=== PATIENT | male | born 1950 | race Caucasian/White ===

== ENCOUNTER 2025-07-29 13:34 | Inpatient (IN) | payer MEDICARE, SELFPAY ==
[2025-07-29] VITALS (15 sets, daily range): BP systolic 181–211; BP diastolic 82–116; PULSE 67–103; RESP 16–18; TEMP 36.4–36.7; O2SAT 98–100; BMI 11.5; BMI 27.3
--- NOTE | 2025-07-29 13:45 | XR_ITS ---
Examination: CTA carotids with intravenous contrast CTA brain, head with intravenous contrast. 2-D sagittal, coronal reconstructions. 3-D reconstructions. Exam date and time: July 29, 2025 1404 hours INDICATIONS: Stroke alert, onset focal neurologic deficit including altered mental status today CTDI: vol (mGy) 11.4 DLP: (mGycm) 399 Technique: Multiple CTA axial brain, head carotid images post intravenous contrast injection 75 cc, [id number]. 2-D sagittal, coronal reconstructions. 3-D reconstructions, 3-D post processing including vascular maximum intensity projection images. Low dose protocols were performed. One or more of the following dose reduction techniques were used; automated exposure control, adjustment of the mA and/or KV according to patient size, use of iterative reconstruction technique. Findings: No significant common carotid carotid bifurcation or internal carotid artery stenoses Moderate calcification of the right carotid bifurcation Dominant right vertebral artery in the neck with no critical stenoses Intracranial vertebral arteries basilar artery posterior cerebral branches fill with no occlusions Moderate calcification juxtasellar portions of the internal carotid arteries No large vessel cerebral occlusions involving middle cerebral or anterior cerebral arteries IMPRESSION: No significant neck arterial stenoses No cerebral large vessel arterial occlusions or thrombus
--- NOTE | 2025-07-29 13:45 | XR_ITS ---
Examination: CT brain head without contrast. 2-D sagittal coronal reconstructions Date and time of exam:July 29, 2025, 1349 hours INDICATIONS: Stroke alert, onset focal neurologic deficit today, altered mental status CTDI: vol (mGy):52.3 DLP: (mGycm):999 Technique: Multiple CT axial sections of the brain have been obtained, 5 mm slice thickness. Contrast has not been administered. 2-D sagittal, coronal reconstructions have been obtained Low dose protocols were performed. One or more of the following dose reduction techniques were used; automated exposure control, adjustment of the mA and/or KV according to patient size, use of iterative reconstruction technique. Findings: No significant ventricular enlargement. Intra-axial or extra-axial hemorrhage density is not seen. No mass effect or midline shift Basal cisterns are not remarkable. Fourth ventricle is midline. Cranial vault intact. Impression: Negative for acute hemorrhage, mass effect or midline shift
--- NOTE | 2025-07-29 13:45 | XR_ITS ---
Examination: AP chest single view Technique one AP upright portable chest single view Date and time: July 29, 2025 1409 hours INDICATIONS: Stroke alert patient today, onset confusion altered mental status FINDINGS: Normal heart size. No aspiration pneumonia. Right internal jugular dialysis catheter tips right atrium No pulmonary edema IMPRESSION: Negative for aspiration pneumonia
--- NOTE | 2025-07-29 13:45 | EKG_ITS ---
[facility] Test Date: 2025-07-29 Pat Name: MANNY AREVALO Department: Room: - Gender: Male Coat Baster: : 1950 Requested By: Alcira Bañuelos Order Number: [id number] Reading MD: Alcira Bañuelos Measurements Intervals [place] Rate: 77 P: 47 OR: 212 QRS: -50 QRSD: 145 T: 51 QT: 418 QTc: 474 Interpretive Statements SINUS RHYTHM WITH FIRST DEGREE AV BLOCK LEFT ATRIAL ENLARGEMENT [-0.15mV P-WAVE IN V1/V2] RIGHT BUNDLE BRANCH BLOCK [120+ ms QRS DURATION, UPRIGHT V1, 40+ ms S IN I/aVL/V4/V5/V6] LEFT ANTERIOR FASCICULAR BLOCK [QRS AXIS <= -45, QR IN I, RS IN II] Compared to ECG 01/16/2021 09:38:16 First degree AV block now present Left anterior fascicular block now present Sinus bradycardia no longer present /store/S0/[id number]/[id number].pdf
--- NOTE | 2025-07-29 14:00 | PD.EDNEURO ---
Neuro Symptoms Deficit-RME/HPI General Chief Complaint: Extremity Problem,Nontraumatic Stated Complaint: UNABLE TO WALK, NO STRENGHT IN LEGS FOR AN HOUR Time Seen by Provider: 07/29/25 13:55 Arrival date/time: 07/29/25 13:34 Mode of arrival: wheelchair RME / HPI RME / HPI Narrative: Mr. Flores is a 74-year-old male with past medical history of ESRD on HD TTS follows Dr. Navarrete, hypertension, hyperlipidemia and diabetes mellitus presented to [facility] emergency department on 07/29/2025 with a chief complaint of bilateral lower extremity weakness after hemodialysis today, patient did complete dialysis treatment per . Patient is disoriented, slow to respond unable to answer questions appropriately, is repeating same sentences unable to hold a conversation. Stroke alert initiated in the triage, CT scan of head and CTA negative. Per teleneurology high suspicion of toxic encephalopathy. Patient seen after teleneurology evaluation, patient is alert and oriented x 4 able to monitor questions, complaints that he has been feeling confused, at bedside assisted in providing history she reports that patient was on peritoneal dialysis for about 2 years had COVID infection and did not dialyze himself for about 7 days eventually had dialysis catheter placed and was transition to hemodialysis. She reported that he had an episode of diarrhea yesterday, otherwise denies any fever, chills, myalgias, headache, shortness of breath, chest pain, palpitations and falls. also reported that he had a similar episode in the past about a month ago and was worse. Onset (ago): hour(s) Last Observed Normal: 12:41 Timing confirmed by: spouse Location: left leg, right leg and altered History of same: Yes Related Data Home Medications ?Medication ?Instructions ?Recorded ?Confirmed pioglitazone 30 mg tablet (Actos) 30 mg PO QDAY #0 tabs 02/28/14 01/17/21 doxazosin 2 mg tablet 2 mg PO QDAY 03/26/18 01/17/21 clonidine HCl 0.2 mg tablet 0.2 mg PO BID 01/17/21 01/17/21 glipizide 5 mg tablet 5 mg PO BID 01/17/21 01/17/21 lovastatin 40 mg tablet 40 mg PO QPM 01/17/21 01/17/21 Previous Rx's ?Medication ?Instructions ?Recorded docusate sodium 100 mg capsule 100 mg PO BID #60 caps 01/17/21 (Colace) hydrocodone 5 mg-acetaminophen 325 1 tab PO Q6H PRN pain (scale score 01/17/21 mg tablet 7-10) #20 tabs Allergies Allergy/AdvReac Type Severity Reaction Status Date / Time No Known Allergies Allergy Verified 07/29/25 13:41 Review of Systems Review of Systems Systems Reviewed: All systems reviewed, normal except as documented Past Medical History Past Medical History Comments PMH COMMENT: PMH: Positive for ESRD on HD TTS follows Dr. Navarrete, hypertension, hyperlipidemia and diabetes mellitus PSHx: Peritoneal dialysis, permanent dialysis catheter placement Allergies: No known allergies Social history: -Smoking: Denies -Alcohol Use: Denies -Martial Status: , at bedside Family History: No pertinent family history ED Exam Narrative Physical exam: Physical Exam General: Awake and in no acute distress. Conversational and non-toxic appearing. Slow to respond, repeats same questions. HEENT: Normocephalic, atraumatic, mucous membranes moist. Dialysis catheter noted. Heart: Regular rate and rhythm, no murmurs. Hypertensive BP 218/108 Lungs: Clear to auscultation with no wheezing or crackles. Abdomen: Soft, nondistended, nontender, positive bowel sounds. ?No guarding or rebound tenderness. Neurologic: Alert and oriented x3, no gross neurological deficit, and patient able to move all 4 extremities. Extremities: Trace bilateral lower extremity edema Skin: No rash or ecchymoses. Course Course Course Narrative: CT scan of head negative, CTA negative. Discussed with teleneurology likely toxic etiology. Teleneurology recommends MRI to rule out stroke, patient's mentation has improved compared to presentation. Was recently started on hemodialysis about a month ago, did have symptom after completing dialysis treatment. CBC shows hemoglobin stable, no white count noted, INR within normal limits, ABG shows pH 7.52, pCO2 27. CMP notable for BUN 32 creatinine 5.1, glucose 139 albumin 4.9 Urine analysis shows bacteria rare, WBC 13, RBC 4, Estrace positive, trace blood, glucose 2+, protein 1+ Patient will be admitted to hospital for CVA workup and further workup for bilateral lower extremity weakness Quality Measures Suspected type of Stroke: Unknown at this time Last known well (date): 07/29/25 Last known well (time): 12:41 Tenecteplase given: Reason(s) TPA not given: Stroke severity too mild (non-disabling) (Per tele-neuro etiology metabolic) not given stroke Orders Category Date Time Status Bedside Blood Glucose NOW Care 07/29/25 13:45 Active COVID-19 Screening Questionnaire NOW Care 07/29/25 15:04 Active Transplant Registered Nurse NOW Care 07/29/25 13:45 Active Continuous Pulse Oximetry NOW Care 07/29/25 13:45 Completed Decision to Admit X1 Care 07/29/25 15:04 Completed EKG (ED ONLY) *Do not use* NOW Care 07/29/25 13:45 Completed In and Out Catheter NEEDED Care 07/29/25 13:45 Active Insert IV NOW Care 07/29/25 13:45 Active NIH Stroke Scale now Care 07/29/25 13:45 Active NPO NOW Care 07/29/25 13:45 Active Neuro Check Q1HR Care 07/29/25 13:45 Active Nurse Swallow Screen x1 Care 07/29/25 13:45 Active Consult to Neurology / Tele-Neurology Routine Cons 07/29/25 13:[address] angio stroke protocol Stat Exams 07/29/25 13:[address] stroke protocol Stat Exams 07/29/25 13:45 Completed EKG (ED Only) Stat Exams 07/29/25 13:45 Draft XR chest 1V portable Stat Exams 07/29/25 13:45 Completed Arterial Blood Gas Stat Lab 07/29/25 14:25 Completed B-Type Natriuretic Peptide Stat Lab 07/29/25 14:35 Completed Blood Culture (Lab) Stat Lab 07/29/25 15:54 Ordered CBC Stat Lab 07/29/25 13:53 Completed Comprehensive Metabolic Panel Stat Lab 07/29/25 13:53 Completed Drug Screen,Urine Stat Lab 07/29/25 15:16 Completed Magnesium Stat Lab 07/29/25 13:53 Completed Partial Thromboplastin Time Stat Lab 07/29/25 13:53 Completed Prothrombin Time with INR Stat Lab 07/29/25 13:53 Completed Troponin I Stat Lab 07/29/25 13:53 Completed Urinalysis, C/S if Indicated Stat Lab 07/29/25 15:16 Completed Urine Culture Stat Lab 07/29/25 15:16 Received Aspirin [Ecotrin] Med 07/29/25 14:45 Active 81 mg PO QDAY Enalaprilat Inj [Vasotec Inj] Med 07/29/25 14:35 Discontinued 1.25 mg IVP X1 ONE Ondansetron Inj [Zofran Inj] Med 07/29/25 13:44 Active 4 mg IVP Q4HR PRN cefTRIAXone [Rocephin] 2 gm Med 07/29/25 15:54 Active SODIUM CHLORIDE 0.9% (Popper) [Ns 0.9% (P)] 50 ml IV X1 Oxygen Delivery NOW RT 07/29/25 13:45 Active Vital Signs Vital signs: Vital Signs Pulse Rate 103 H 07/29/25 13:47 Respiratory Rate 18 07/29/25 13:47 Blood Pressure 187/104 H 07/29/25 13:47 Pulse Oximetry (%) 99 07/29/25 13:47 Oxygen Delivery Method Room Air 07/29/25 13:47 Neuro Symptoms / Deficit MDM Narrative MDM Narrative:: #CVA workup #Bilateral lower extremity weakness #UTI Patient presented post HD for bilateral lower extremity weakness, confused on presentation. Stroke alert initiated, CT head negative, CTA negative Teleneurology suspects toxic versus metabolic etiology though recommends MRI and further workup Patient recently transition from peritoneal dialysis to hemodialysis had diarrhea yesterday, suspicion of delirium postdialysis which is improving Also suspicion of TIA, started on aspirin 81 mg daily per teleneurology recommendations, patient's blood pressure 218/108 was given Vasotec Positive for urinary tract infection, given ceftriaxone 2 g x 1, blood cultures ordered, urine cultures sent Case discussed with hospitalist team patient will be admitted for further workup. Case discussed with Attending Physician Dr. Moncho Bañuelos MD Internal Medicine PGY-2 Disclaimer: This note was dictated by speech recognition. Minor errors in branch operations specialist may be present due to voice recognition software. Patient data External records reviewed:: [facility] previous records Clinical information provided by:: patient and spouse Social determinants that could affect healthcare access:: none Patient has the following chronic illnesses:: As above How is presenting disease/condition affected by chronic disease/condition?: exacerbated by Evaluation data The following diagnostics were reviewed and interpreted by me:: lab results, radiology exam(s) and EKG tracing(s) Lab and/or radiology exams considered but not ordered:: none Interpretation Summary: CT scan of head negative, CTA negative. Discussed with teleneurology likely toxic etiology. CBC shows hemoglobin stable, no white count noted, INR within normal limits, ABG shows pH 7.52, pCO2 27. CMP notable for BUN 32 creatinine 5.1, glucose 139 albumin 4.9 Urine analysis shows bacteria rare, WBC 13, RBC 4, Estrace positive, trace blood, glucose 2+, protein 1+ Medications / Prescriptions Medications or Prescriptions considered but not ordered:: None Medication administrations:: Medication Administration History Aspirin (Aspirin Ec 81 Mg Tabec) 81 mg PO QDAY GERDA Stop: 08/28/25 14:44 Last Admin: 07/29/25 14:45 Dose: 81 mg Documented By: BY Ceftriaxone Sodium 2 gm/ (Sodium Chloride) 50 mls @ 100 mls/hr IV X1 ONE Stop: 07/29/25 16:23 Ondansetron HCl (Ondansetron Inj 2 Mg/Ml Inj 2 Ml) 4 mg IVP Q4HR PRN PRN Reason: NAUSEA OR VOMITING Stop: 08/28/25 13:43 Last Admin: 07/29/25 14:45 Dose: 4 mg Documented By: BY Discontinued Medications Enalaprilat (Enalaprilat Inj 1.25 Mg/Ml Vial) 1.25 mg IVP X1 ONE Stop: 07/29/25 14:36 Last Admin: 07/29/25 15:05 Dose: 1.25 mg Documented By: BY As Above Consultations Consultation(s) initiated? (list below): Yes Consultation #1 (Physician, Specialty, Details): Teleneurology, Neurology, Stroke Alert Diagnosis Neuro Differential Diagnosis: delirium, cerebrovascular accident and transient cerebral ischemia Most likely diagnosis given after review of the tests above:: TIA Admission Indicated Admission indicated?: indicated Explain why admission is indicated or not indicated:: For MRI, stroke workup and further investigation for lower extremity weakness Admission Request Was there a request for admission?: Yes Admission Attestation Admission request attestation: Discussed case with Dr Nagy from Hospitalist service regarding admission. Discussed patients ED course, exam findings, labs, and radiology results. The Hospitalist agrees to accept the patient for admission. Disposition Plan Disposition Plan: Admit Discharge Plan Plan Patient Disposition: Admit Acute Care w/in Hospital Prescriptions/Referrals Prescriptions/Med Rec: No Action pioglitazone [Actos] 30 MG tablet 30 mg PO QDAY Qty: 0 Patient Comments: FOR DIABETES lovastatin 40 mg Tablet 40 mg PO QPM clonidine HCl 0.2 mg Tablet 0.2 mg PO BID glipizide 5 mg Tablet 5 mg PO BID hydrocodone-acetaminophen 5-325 mg tablet 1 tab PO Q6H MDD 4 PRN (Reason: pain (scale score 7-10)) Qty: 20 0RF docusate sodium [Colace] 100 mg capsule 100 mg PO BID Qty: 60 0RF doxazosin 2 mg Tablet 2 mg PO QDAY Referrals: No Primary/Family,Physician [Primary Care Provider] - In 1 week Problem List Clinical Impression: CVA (cerebral vascular accident) Patient/Caregiver Discharge Instructions Print Language: Welsh Stand Alone Forms: Priya Award Info., Patient Portal Info Letter
[2025-07-29 14:06] LABS: Basophils # (Auto) 0.0 Thou/mm3 (0.0-0.2); Basophils % (Auto) 1 % (0-2.5); Eosinophils # (Auto) 0.1 Thou/mm3 (0.0-0.5); Eosinophils % (Auto) 2 % (0-10); Hematocrit 42.2 % (41.0-53.0); Hemoglobin 14.3 g/dL (13.5-16.0); Immature Granulocytes Auto 0.03 Thou/mm3 (0.00-0.00); Lymphocytes # (Auto) 1.1 Thou/mm3 (1.0-4.8); Lymphocytes % (Auto) 16 % (10-50); Mean Corpuscular HGB Conc 33.9 g/dl (31.0-37.0); Mean Corpuscular Hemoglobin 31.4 pg (25.0-35.0); Mean Corpuscular Volume 93 fL (80-100); Monocytes # (Auto) 0.5 Thou/mm3 (0.0-0.8); Monocytes % (Auto) 8 % (0-12); Neutrophils # (Auto) 4.9 Thou/mm3 (1.8-7.7); Neutrophils % (Auto) 73 % (37-80); Nucleated Red Blood Cell # 0.00 Thou/mm3 (0.00-0.00); Nucleated Red Blood Cell % 0 /100 WBC (0); Platelet Count 286 Thou/mm3 (140-440); RDW Standard Deviation 48.9 fL (35.1-43.9); Red Blood Count 4.55 Miln/mm3 (4.50-5.90); White Blood Count 6.8 Thou/mm3 (3.8-10.6)
--- NOTE | 2025-07-29 14:12 | ESCONSULT_ITS ---
Tele Neuro Consultation Consultation Date 07/29/25 Most Recent Vital Signs Last Vital Signs Pulse 103 H 07/29/25 13:47 Resp 18 07/29/25 13:47 BP 187/104 H 07/29/25 13:47 Pulse Ox 99 07/29/25 13:47 O2 Del Method Room Air 07/29/25 13:47 Consultation Narrative [facility] Tele[facility]rology Consult Services Patient Name:???Mihai Flores Date of :???1950 Identification Number:??? Date of Service:???07/29/2025 13:50:12 Diagnosis:?G93.41 - Encephalopathy Metabolic Impression: ?74 year old male presenting with features of metabolic encephalopathy and bilateral weakness following dialysis today. Suspect toxi-metabolic etiology, less likely stroke. Further inpatient workup recommended. Our recommendations are outlined below. Recommendations: ? Stroke/Telemetry Floor ? Neuro Checks (Q4) ? Bedside Swallow Eval ? DVT Prophylaxis ? IV Fluids, Normal Saline ? Head of Bed 30 Degrees ? Euglycemia and Avoid Hyperthermia (PRN Acetaminophen) ? Initiate or continue Aspirin 81 MG daily ? Antihypertensives PRN if Blood pressure is greater than 220/120 or there is a concern for End organ damage/contraindications for permissive HTN. If blood pressure is greater than 220/120 give labetalol PO or IV or Vasotec IV with a goal of 15% reduction in BP during the first 24 hours. ?Toxi-metabolic workup ?MRI brain wo contrast routine Sign Out: ? Discussed with Emergency Department Provider Advanced Imaging:Advanced imaging has been ordered. Results pending. Metrics: Last Known Well: Unknown Dispatch Time: 07/29/2025 13:50:12 Arrival Time: 07/29/2025 13:34:00 Initial Response Time: 07/29/2025 13:54:49Symptoms: bilateral leg weakness. Initial patient interaction: 07/29/2025 13:56:48 NIHSS Assessment Completed: 07/29/2025 13:59:01Patient is not a candidate for Thrombolytic. Thrombolytic Medical Decision: 07/29/2025 13:59:02Patient was not deemed candidate for Thrombolytic because of following reasons: LKW outside 4.[address] Head: CT head unremarkable for acute infarction or hemorrhage per Radiology: no acute findings per radiology Primary Provider Notified of Diagnostic Impression and Management Plan on: 07/29/2025 14:03:49 History of Present Illness:Patient is a 74 year old Male. Patient was brought by private transportation with symptoms of bilateral leg weakness. The patient presents after he was at dialysis today and was noted to have difficulty moving both legs and resulting difficulty walking. The history is otherwise limited. The patient is overtly disoriented, encephalopathic and displaying asterixis; no lateralizing deficits reported. ? Past Medical History: ?Hypertension ?Diabetes Mellitus ?Hyperlipidemia Other PMH:? ESRD Medications: Anticoagulant use:??Unknown Antiplatelet use:?Unknown Reviewed EMR for current medications Allergies:? Reviewed Social History: Smoking: No Family History: There is no family history of premature cerebrovascular disease pertinent to this consultation ROS :?ROS Cannot Be Obtained Because:? Patient Is Confused Past Surgical History: There Is No Surgical History Contributory To Today?s Visit ? Examination: BP(141/103),?Pulse(85),?Blood Glucose(156) 1A: Level of Consciousness - Alert; keenly responsive?+ 0 1B: Ask Month and Age - Could Not Answer Either Question Correctly?+ 2 1C: Blink Eyes & Squeeze Hands - Performs Both Tasks?+ 0 2: Test Horizontal Extraocular Movements - Normal?+ 0 3: Test Visual Ness - No Visual Loss?+ 0 4: Test Facial Palsy (Use Grimace if Obtunded) - Normal symmetry?+ 0 5A: Test Left Arm Motor Drift - No Drift for 10 Seconds?+ 0 5B: Test Right Arm Motor Drift - No Drift for 10 Seconds?+ 0 6A: Test Left Leg Motor Drift - Some Effort Against [place]?+ 2 6B: Test Right Leg Motor Drift - Drift, but doesn't hit bed?+ 1 7: Test Limb Ataxia (FNF/Heel-Ramos) - No Ataxia?+ 0 8: Test Sensation - Mild-Moderate Loss: Can Sense Being Touched?+ 1 9: Test Language/Aphasia - Normal; No aphasia?+ 0 10: Test Dysarthria - Mild-Moderate Dysarthria: Slurring but can be understood?+ 1 11: Test Extinction/Inattention - No abnormality?+ 0 NIHSS Score:?7 NIHSS Free Text :?positive asterixis Pre-Morbid Modified Crockett Scale: Unable to assess Spoke with :?Dr Bañuelos This consult was conducted in real time using interactive audio and video technology. Patient was informed of the technology being used for this visit and agreed to proceed. Patient located in hospital and provider located at home/office setting. Patient is being evaluated for possible acute neurologic impairment and high probability of imminent or life-threatening deterioration. I spent total of 36 minutes providing care to this patient, including time for face to face visit via telemedicine, review of medical records, imaging studies and discussion of findings with providers, the patient and/or family. Dr Jimmy Ramos [facility] For Inpatient follow-up with [facility] physician please call [facility] at . As we are not an outpatient service for any post hospital discha rge needs please contact the hospital for assistance. If you have any questions for the [facility] physicians or need to reconsult for clinical or diagnostic changes please contact us via [facility] at . Signature :?Jimmy Ramos
[2025-07-29 14:23] LABS: INR 1.0 (0.9-1.3); Partial Thromboplastin Time 31.7 Seconds (22.0-36.0); Prothrombin Time 11.3 Seconds (9.0-12.2)
[2025-07-29 14:25] LABS: Alanine Aminotransferase < 7 U/L (10-49); Albumin, Serum 4.9 gm/dL (3.4-4.8); Albumin/Globulin Ratio 1.8 (1.2-2.2); Alkaline Phosphatase 82 U/L (46-116); Anion Gap 15 (7-16); Aspartate Amino Transferase 19 U/L (0-34); BUN/Creatinine Ratio 6 Ratio (12-20); Bilirubin,Total 0.7 mg/dL (0.3-1.2); Blood Urea Nitrogen 32 mg/dL (9-23); Calcium 9.6 mg/dL (8.3-10.6); Calcium (Corrected) 9.6 mg/dL (8.5-10.1); Carbon Dioxide 24.3 mMol/L (20.0-31.0); Chloride 98 mMol/L (98-107); Creatinine (Component) 5.1 mg/dL (0.6-1.3); Globulin 2.7 gm/dL (2.3-3.5); Glucose 139 mg/dL (74-106); Magnesium 2.1 mg/dL (1.6-2.6); Osmolality,Calculated 282 (275-295); Potassium 4.4 mMol/L (3.4-5.1); Sodium 137 mMol/L (136-145); Total Protein 7.6 gm/dL (5.7-8.2); Troponin I < 0.020 ng/mL (0.0-0.045); eGFR 11 See Note
[2025-07-29 14:41] LABS: Base Excess 1 (-3-3); HCO3 22 mEq/L (20-26); Inspired Oxygen, FIO2 21 %; O2 Saturation 99 % (91-98); PCO2 27 mmHg (32.0-48.0); PO2 113 mmHg (83-108); pH, Arterial 7.52 (7.35-7.45)
[2025-07-29 14:42] LABS: Allen Test Performed/OK; Puncture Site Right Radial
[2025-07-29] MEDS: ONDANSETRON INJ 2 MG/ML INJ 2 ML 4 MG IVP (14:45)
[2025-07-29] MEDS: ASPIRIN EC 81 MG TABEC PO (14:45)
[2025-07-29] MEDS: ENALAPRILAT INJ 1.25 MG/ML VIAL IVP (15:05)
[2025-07-29 15:13] LABS: B-Type Natriuretic Peptide 407 pg/mL (0-100)
[2025-07-29 15:22] LABS: Collection Type, Urine Clean Catch
--- NOTE | 2025-07-29 15:26 | PC.NURSE ---
DR. Gabby STARKS AT BEDSIDE ASSESSING PT AT THIS TIME.
[2025-07-29 15:34] LABS: Bacteria,Urine Rare; Bilirubin,Urine Negative (Negative); Blood,Urine Trace (Negative); Clarity,Urine Clear (Clear/Hazy); Color,Urine Colorless (Lt Yel-Yel); Culture Indicated,Urine Yes; Glucose, Urine 2+ (Negative); Ketones,Urine Negative (Negative); Leukocyte Esterase,Urine Positive (Negative); Nitrite,Urine Negative (Negative); PH,Urine 7.5 (5.0-7.0); Protein,Urine 1+ (Neg - Trace); RBC,Urine 4 /hpf (0-3); Specific Gravity,Urine 1.010 (1.001-1.035); Squamous Epithelial Cell,Urine < 1 /hpf (0-5); Urobilinogen,Urine Negative mg/dL (0.0-1.0); WBC,Urine 13 /hpf (0-5)
[2025-07-29 15:44] LABS: Amphetamine/Methamp Scrn,U Negative (Negative); Barbiturate Screen,Urine Negative (Negative); Benzodiazepines Screen,Urine Negative (Negative); Benzoylecgonine Screen, Ur Negative (Negative); Fentanyl Screen,Urine Negative (Negative); Opiate Screen,Urine Negative (Negative); THC Screen,Urine Negative (Negative)
--- NOTE | 2025-07-29 15:59 | ESHP_ITS ---
<Statement entered by Ana Luisa Perales MD - 07/30/25 13:12> Patient is a 74 y.o male with PMHx significant for ESRD on TTHSa, following Dr. Navarrete, HTN, DM2, HLD who presented to the ED with bilateral weakness and dizziness shortly after his dialysis session. Patient also states he skipped his session on Saturday because he wasn't feel well. S/P HD session on day of admission, patient states he couldn't feel his extremities and came to the ED. Patient denies any LOC or seizures, or blurry vision. Patient will be admitted for further management including stroke workup. Will f/u with labs and Brain MRI. I discussed with and supervised the ad operations intern physician who took care of this patient. I personally saw and examined the patient and discussed the assessment and plan with the entire medicine team, including my attending Dr. Roa, I agree with most of the assessment and plan as documented below Ana Luisa Perales M.D. PGY-3 Documentation for date of: 07/29/25 HPI History of Present Illness Chief complaint: BLE weakness, stroke r/o History of present illness: Mr Flores is a 74 yo M with a hx of ESRD TTS (follows with Dr. Navarrete) ?consistency with hd sessions, htn, t2dm, hld who presents to the ed with c/c ble weakness following his hd session today. Pt is accompanied by his who states that he has had some confusion for the past few months, he did not attend hd session on saturday because he was feeling weak. he attended his morning hd session earlier today and when his session completed he realized that he could not move his lower extremeties, he endorsed some parasthesias. He states that he sat in the hd chair for an additional hour before he regained some feeling in his legs. these symptoms prompted him to present to the ED per , pt has had some ground level falls without headstrike 3 months ago, she notes that he is often holding on to objects around the house to get around and ambulates very slowly. PMH: previously on PD for 2 years, newly on HD for past 2 months, HTN, t2DM, HLD Surg: PD port removal Meds: to bring meds to the hospital ROS endorses dizziness, lower extremitiy weakness and decreased sensation, vision changes , chills denies fever, nausea, vomiting, bowel changes, ED course stroke alert called, BP elevated, tele neuro consulted nihss 7. Pertinent labs, abg ph 7.52, a1c 5.6, BNP 407, elevated tryglcerides, UA leuk esterase positive with 13 wbc, rare bacteria Pertinent imaging : CT head, Negative for acute hemorrhage, mass effect or midline shift, CTA head and neck with no occlusions, cxr, no pna Exam Vital Signs Pulse Resp BP Pulse Ox O2 Del Method 77 18 197/101 H 99 Room Air 07/29/25 15:11 07/29/25 15:11 07/29/25 15:11 07/29/25 15:11 07/29/25 15:11 Narrative Exam GENERAL: no acute distress, AAO x1, comfortably laying in bed HEENT: Head AT/ NC. Mucous membranes moist. PERRL. NECK: Supple, no lymphadenopathy, no carotid bruits. CARDIOVASCULAR: RRR. Normal S1/S2, No m/r/g. No pitting edema of bilateral LEs. RESPIRATORY: CTAB. No wheezing, rhonchi, crackles. GASTROINTESTINAL: Abdomen soft, non tender no palpable masses. Bowel sounds present MUSCULOSKELETAL:? No cyanosis or edema, no visible joint swelling. NEUROLOGICAL: CN II-XII grossly intact. decreased sensation of LLE, 4/5 weakness LLE, 5/5 BUE, difficulty with following commands, word finding difficulties, repitition in tact, ?dysmetria on finger nose finger. PSYCHIATRIC: Awake and alert, not agitated, normal mood and affect. SKIN: No obvious rashes, no jaundice, normal turgor. Results: Labs 07/30/25 05:23 07/30/25 05:23 Labs: Short CBC 07/29/25 Range/Units 13:53 WBC 6.8 (3.8-10.6) Thou/mm3 Hgb 14.3 (13.5-16.0) g/dL Hct 42.2 (41.0-53.0) % Plt Count 286 (140-440) Thou/mm3 BMP 07/29/25 13:53 Sodium 137 Potassium 4.4 Chloride 98 Carbon Dioxide 24.3 BUN 32 H Creatinine 5.1 H* Glucose 139 H Calcium 9.6 Cardiac Enzymes 07/29/25 Range/Units 13:53 Troponin I < 0.020 (0.0-0.045) ng/mL Liver Function 07/29/25 Range/Units 13:53 Total Bilirubin 0.7 (0.3-1.2) mg/dL AST 19 (0-34) U/L ALT < 7 L (10-49) U/L Alkaline Phosphatase 82 (46-116) U/L Albumin 4.9 H (3.4-4.8) gm/dL Urine 07/29/25 Range/Units 15:16 Urine Color Colorless A (Lt Yel-Yel) Urine Clarity Clear (Clear/Hazy) Urine pH 7.5 H (5.0-7.0) Ur Specific [place] 1.010 (1.001-1.035) Urine Protein 1+ A (Neg - Trace) Urine Glucose (UA) 2+ A (Negative) ABG Interpretation ABG results: 07/29/25 14:25 ABG pH 7.52 H ABG pCO2 27 L ABG pO2 113 H ABG HCO3 22 ABG O2 Saturation 99 H ABG Base Excess 1 Quality Measures Quality Measures stroke Suspected type of Stroke: Unknown at this time Last known well (date): 07/29/25 Last known well (time): 12:41 Tenecteplase given: Reason(s) Tenecteplase not given: Stroke severity too mild (non-disabling) (Per tele-neuro etiology metabolic) not given Rehab services: PT evaluation ordered VTE Prophylaxis: pharmaceutical Antithrombotic by day 2:: ordered Statin ordered: <75 y/o high intensity dose Anticoagulation ordered for A-fib or flutter (current or hx): not indicated Advance care planning discussed with:: patient Medications Home Medications and Allergies Home Medications ?Medication ?Instructions ?Recorded ?Confirmed ?Type pioglitazone 30 mg tablet (Actos) 30 mg PO QDAY #0 tab s 02/28/14 07/30/25 History lovastatin 40 mg tablet 40 mg PO QPM 01/17/21 History amlodipine 5 mg tablet 5 mg PO QDAY 07/30/25 History lisinopril 40 mg tablet 40 mg PO BID 07/30/25 History sevelamer carbonate 800 mg tablet 1,600 mg PO .WITH ME ALS 07/30/25 07/30/25 History Allergies Allergy/AdvReac Type Severity Reaction Status Date / Time No Known Allergies Allergy Verified 07/29/25 13:41 Visit Medications Aspirin (Aspirin Ec 81 Mg Tabec) 81 mg PO QDAY GERDA Stop: 08/28/25 14:44 Last Admin: 07/29/25 14:45 Dose: 81 mg Ceftriaxone Sodium 2 gm/ (Sodium Chloride) 50 mls @ 100 mls/hr IV X1 ONE Stop: 07/29/25 16:23 Ondansetron HCl (Ondansetron Inj 2 Mg/Ml Inj 2 Ml) 4 mg IVP Q4HR PRN PRN Reason: NAUSEA OR VOMITING Stop: 08/28/25 13:43 Last Admin: 07/29/25 14:45 Dose: 4 mg Discontinued Medications Enalaprilat (Enalaprilat Inj 1.25 Mg/Ml Vial) 1.25 mg IVP X1 ONE Stop: 07/29/25 14:36 Last Admin: 07/29/25 15:05 Dose: 1.25 mg Assessment & Plan Plan Mr Flores is a 74 yo M with a hx of ESRD TTS (follows with Dr. Navarrete) ?consistency with hd sessions, htn, t2dm, hld who presents to the ed with c/c ble weakness following his hd session today, admitted for stroke rule out, allowing for permissive htn until stroke is ruled out. on physical exam he has word finding difficulties, difficulty following commands, decreased sensation of LLE, deminished strength on the L side in house neuro consulted, appreciate recs. suspect PRES vs stroke. ?Acute ischemic Stroke vs ?Acute encephalopathy vs ?hypertensive emergency vs ?posterior reversible encephalopathy syndrome (PRES) Patient was not deemed a candidate for tPA because last known well was greater than 4.5 hours NIHSS score of 7 pt presented with c/f bilateral LE weakness preventing him from ambulating after HD, pt reported that he missed HD session on saturday BP elevated upon presentation to the ed, may be poorly controlled outpatient Dx * NCHCT Negative for acute hemorrhage, mass effect or midline shift * CTA head neck No significant neck arterial stenosis. No cerebral large vessel arterial occlusions or thrombus * Brain MRI wo contrast pending * Echo with bubble pending * EEG pending * A1c pending * TSH pending * B12 pending * Lipid panel pending * Every 4 hours neuro checks * Telemetry neurology consulted recommends; admission * In-house neurologist consulted: Dr. Perales, appreciate recs * Consult physical therapy * Consult speech Tx * ASA 81 mg daily * Atorvastatin 40 mg at bedtime * APAP 650 mg every 6hrs as needed * Hydralazine 10 mg every 8 hours as needed for SBP greater than 180 but less than 220 * labetalol 10 mg IV q6hr prn for sbp> 220 * Keep euglycemic * Head a bed 30 degrees * Permissive hypertension in the first 48 hours continue to hold home antihypertensives ESRD on HD TTS GFR [address] Navarrete BUN 32, Cr 5.1, does not appear volume overloaded on exam, no LE edema, no crackles. ?compliance with getting HD, reports missing saturday session this week, Pt went to HD on . - Consult nephjonh barajas for inpatient HD during admission - avoid nephrotoxic agents - renally dose medications T2DM not on insulin - well controlled a1c 5.6 hold home glipizide 5 mg po bid hold pioglitazone 30 mg qd - ISS HTN Hypertensive emergency, permitted in setting of stroke rule out - hold home antihypertensives - hold home doxyzosyn 2 mg qd - hold clonidine 0.2 PO BID Gait instability hx falls , lives at home with his wive, indpendent of adls, uses cane sometimes. - f/u pt evaluation dementia? reports c/f stepwise decline - f/u tsh and b12, - consider moca outpatient HLD holding home lovastatin 40 mg qhs - atorvastatin 40 qhs UTI vs Pyuria pt denies LUTS, UA with 2+ Glucose, 1+ protein, Leukesterase + Ucx pending - CTX 1 gm qd (07/29- Constipation - docusate 100 mg PRN Dispo: tele, stroke rule out, pending MRI, and echo, in house neuro consulted Diet: pending speech eval Bowel Reg: docusate 100 mg prn VTE ppx: heparin 5000sq ( pt refused, SCD) GI ppx: protonix 40 qd Code status: FULL Plan discussed with Dr Perales, and Dr. Crispin Stevenson MD PGY1 Attending Provider Attestation/Addendum After examination of the patient and review of the clinical data I feel that this patient needs admission to the hospital for further treatment/evaluation. I have discussed and was present for the essential components of the history, physical examination, diagnosis, and treatment plan with the resident. I agree with the patient's care as documented by the resident and amended herein by me. Vik Roa DO. Although this document has been carefully reviewed, there may still be some phonetic and other typographical errors. These errors are purely grammatical due to imperfections in the software program and should not be construed in any way to compromise the substance of the patient's medical care during this visit. Patient seen and evaluated in the ED. In short, patient is a 74-year-old male with a significant past medical history of ESRD on hemodialysis, hypertension, hyperlipidemia and type 2 diabetes, who presented to the ED with his for bilateral lower extremity weakness and difficulty ambulating after his dialysis session this morning. Per the patient's , he has been demonstrating some encephalopathy for the past 2 to 3 months prior to admission and appears to have memory deficits. Blurred vision was also endorsed in his right eye for the past week. Patient did miss dialysis on this past Saturday due to feeling ill and weak. Of note, he did recently start dialysis approximately 2 months prior to admission. In the ED, CBC largely unremarkable, BMP significant for BUN of 32 and creatinine of 5.1. BNP 407, an ABG was drawn demonstrating a pH 7.52, pCO2 27, pO2 113 and a bicarb of 22. EKG demonstrating NSR, CT head negative for any intracranial pathology, negative for stroke, CTA negative for any LVO. UA was positive, UDS is pending. Teleneurology was consulted, suspect toxic metabolic etiology for the patient's symptoms however recommends usual stroke precautions, initiation of ASA 81 mg daily, permissive hypertension, toxic metabolic workup and MRI brain. Patient subsequently admitted to telemetry for: #CVA rule out #Hypertensive emergency #Hypertensive encephalopathy versus toxic metabolic encephalopathy #ESRD on hemodialysis #?Urinary tract infection Neurology has been consulted, MRI brain ordered, patient placed on aspirin 81 mg daily, permissive hypertension for at least 24 hours with as needed labetalol and hydralazine on board. Stroke cautions in place, patient placed on high intensity statin, patient placed on ceftriaxone for potential UTI. Will monitor closely
--- NOTE | 2025-07-29 16:07 | PD.RESCONSUL ---
HPI Data of Consult Consult date: 07/29/25 Primary Care Provider: Physician No Primary/Family Consult Narrative Reason for consult: Stroke workup History of present illness: This patient is a 74-year-old male with past medical history of ESRD on dialysis Saturday started recently 2 months ago with dialysis port on right side, recent COVID infection 3 months ago, hypertension, type 2 diabetes presented to the ED accompanied with his with chief complaint of confusion for last 2 months and difficulty in walking this morning during dialysis session. Patient's reported that patient was in dialysis center where he did not feel good and could not walk and felt weak. At baseline patient ambulate independently. Patient has been having confusion for the last 2 to 3 months and is usually confused about where he is and does have significant memory changes. Patient was admitted at [facility] 3 months ago for similar presentation and was noted to have infection which was treated. He also noted to have blurred vision and decreased vision in right eye from last 1 week. Patient's also reported that patient has hallucinations mainly visual sometimes. He denies any headaches or any other complaint. Patient has also lived in the rehab center in the past. Of note, patient's reported the patient did not go to dialysis center on Saturday as he was feeling weak and has been missing sessions in the past. Patient used to do dialysis at home and recently started dialysis in dialysis center x 2 months ago. Past medical history as above Past surgical history dialysis port placement SH: Denies drinking alcohol, smoking tobacco or illicit drug use. Allergies: NKDA Home medications med rec pending patient's did not bring medications Labs revealed stable white count and hemoglobin. Chemistry panel showed electrolytes unremarkable. Kidney functions consistent with ESRD BUN 32 and creatinine 5.1. Blood glucose 139. BNP 407. Urinalysis showed glucose and protein with mild trace WBCs. U tox was negative. Head CT and head and neck CTA was negative. EKG showed sinus rhythm with RBBB. Chest x-ray negative for aspiration. Patient has acute encephalopathy ongoing could be attributed/related to press syndrome, missing dialysis session, possible dementia versus stroke. Will follow-up with MRI brain stroke protocol and echo with bubble study. Recommended to continue aspirin 81 mg once daily and statin. Treat underlying infection likely UTI and need good control of blood pressure. Additionally, recommended to perform EEG, add B12 levels to evaluate metabolic component and as well as seizures. cc:: cc: Review of Systems Review of Systems ROS Unobtainable: unobtainable due to medical condition Past Medical History Past Medical History Comments PMH COMMENT: PMH: Positive for ESRD on HD TTS follows Dr. Navarrete, hypertension, hyperlipidemia and diabetes mellitus PSHx: Peritoneal dialysis, permanent dialysis catheter placement Allergies: No known allergies Social history: -Smoking: Denies -Alcohol Use: Denies -Martial Status: , at bedside Family History: No pertinent family history Exam Vital Signs Pulse Resp BP Pulse Ox O2 Del Method 67 18 189/95 H 99 Room Air 07/29/25 16:01 07/29/25 16:01 07/29/25 16:01 07/29/25 16:07/29/25 16:01 Narrative Exam GENERAL APPEARANCE: Alert and oriented x 2, elderly male in no acute distress. HEENT: NC, AT. MMM. EOMI, clear conjunctiva, oropharynx clear. NECK: Supple without lymphadenopathy. No stiffness or restricted ROM. HEART: Regular rate and regular rhythm, normal S1/S2, no m/r/g LUNGS: CTAB, moving air well. No crackles or wheezes are heard. ABDOMEN: Soft, nontender, nondistended with good bowel sounds heard. BACK: No CVAT, no obvious deformity. EXTREMITIES: Without cyanosis, clubbing or edema. Tremors noted. NEUROLOGICAL: Grossly nonfocal. Alert and oriented x 2 not to time. Tremors noted strength in upper extremity 5/5 and right lower extremity 4/5, left lower extremity 5/5. No facial droop noted. No nystagmus noted. Skin: Warm and dry without any rash. Psych: Memory lapses however conversational Results Labs 07/29/25 13:53 07/29/25 13:53 Labs: Short CBC 07/29/25 Range/Units 13:53 WBC 6.8 (3.8-10.6) Thou/mm3 Hgb 14.3 (13.5-16.0) g/dL Hct 42.2 (41.0-53.0) % Plt Count 286 (140-440) Thou/mm3 BMP 07/29/25 13:53 Sodium 137 Potassium 4.4 Chloride 98 Carbon Dioxide 24.3 BUN 32 H Creatinine 5.1 H* Glucose 139 H Calcium 9.6 Cardiac Enzymes 07/29/25 Range/Units 13:53 Troponin I < 0.020 (0.0-0.045) ng/mL Liver Function 07/29/25 Range/Units 13:53 Total Bilirubin 0.7 (0.3-1.2) mg/dL AST 19 (0-34) U/L ALT < 7 L (10-49) U/L Alkaline Phosphatase 82 (46-116) U/L Albumin 4.9 H (3.4-4.8) gm/dL Urine 07/29/25 Range/Units 15:16 Urine Color Colorless A (Lt Yel-Yel) Urine Clarity Clear (Clear/Hazy) Urine pH 7.5 H (5.0-7.0) Ur Specific [place] 1.010 (1.001-1.035) Urine Protein 1+ A (Neg - Trace) Urine Glucose (UA) 2+ A (Negative) ABG Interpretation ABG results: 07/29/25 14:25 ABG pH 7.52 H ABG pCO2 27 L ABG pO2 113 H ABG HCO3 22 ABG O2 Saturation 99 H ABG Base Excess 1 Quality Measures Quality Measures stroke Suspected type of Stroke: Unknown at this time Last known well (date): 07/29/25 Last known well (time): 12:41 Tenecteplase given: Reason(s) Tenecteplase not given: Stroke severity too mild (non-disabling) (Per tele-neuro etiology metabolic) not given Rehab services: PT evaluation ordered VTE Prophylaxis: pharmaceutical Antithrombotic by day 2:: not indicated (describe) Statin ordered: <75 y/o high intensity dose Anticoagulation ordered for A-fib or flutter (current or hx): not indicated Advance care planning discussed with:: other Medications Home Medications and Allergies Home Medications ?Medication ?Instructions ?Recorded ?Confirmed ?Type pioglitazone 30 mg tablet (Actos) 30 mg PO QDAY #0 tabs 02/28/14 01/17/21 History doxazosin 2 mg tablet 2 mg PO QDAY 03/26/18 01/17/21 History clonidine HCl 0.2 mg tablet 0.2 mg PO BID 01/17/21 01/17/21 History glipizide 5 mg tablet 5 mg PO BID 01/17/21 01/17/21 History lovastatin 40 mg tablet 40 mg PO QPM 01/17/21 01/17/21 History Allergies Allergy/AdvReac Type Severity Reaction Status Date / Time No Known Allergies Allergy Verified 07/29/25 13:41 Visit Medications Aspirin (Aspirin Ec 81 Mg Tabec) 81 mg PO QDAY GERDA Stop: 08/28/25 14:44 Last Admin: 07/29/25 14:45 Dose: 81 mg Ceftriaxone Sodium 2 gm/ (Sodium Chloride) 50 mls @ 100 mls/hr IV X1 ONE Stop: 07/29/25 16:23 Ondansetron HCl (Ondansetron Inj 2 Mg/Ml Inj 2 Ml) 4 mg IVP Q4HR PRN PRN Reason: NAUSEA OR VOMITING Stop: 08/28/25 13:43 Last Admin: 07/29/25 14:45 Dose: 4 mg Discontinued Medications Enalaprilat (Enalaprilat Inj 1.25 Mg/Ml Vial) 1.25 mg IVP X1 ONE Stop: 07/29/25 14:36 Last Admin: 07/29/25 15:05 Dose: 1.25 mg Assessment & Plan Plan This patient is a 74-year-old male with past medical history of ESRD on dialysis Saturday started recently 2 months ago with dialysis port on right side, recent COVID infection 3 months ago, hypertension, type 2 diabetes presented to the ED accompanied with his with chief complaint of confusion for last 2 months and difficulty in walking this morning during dialysis session. Patient's reported that patient was in dialysis center where he did not feel good and could not walk and felt weak. Admitted for possible stroke/acute encephalopathy workup. #Acute encephalopathy, multifactorial #Possible press syndrome, stroke, seizures, dementia, hypertensive urgency Patient presented with weakness and difficulty walking which started this morning during dialysis session. Confusion from last 2 to 3 months per patient's . Completed dialysis session today and missed on Saturday. Last well-known time unknown. TNK was not given as stroke severity was too mild. Labs revealed stable white count and hemoglobin. Chemistry panel showed electrolytes unremarkable. Kidney functions consistent with ESRD BUN 32 and creatinine 5.1. Blood glucose 139. BNP 407. Urinalysis showed glucose and protein with mild trace WBCs. U tox was negative. Head CT and head and neck CTA was negative. EKG showed sinus rhythm with RBBB. Chest x-ray negative for aspiration. Some concern on CT brain for hypodensity in occipital region. Plan: Will perform EEG to rule out seizures, perform B12, TSH levels Follow-up with MRI brain stroke protocol and echo with bubble study Continue aspirin 81 mg once daily and atorvastatin 40 mg HS Neurochecks Q4 hourly PT/OT therapy Need blood pressure management labetalol as needed if SBP above 220/120 Antihypertensives PRN if Blood pressure is greater than 220/120 or there is a concern for End organ damage/contraindications for permissive HTN. If blood pressure is greater than 220/120 give labetalol PO or IV or Vasotec IV with a goal of 15% reduction in BP during the first 24 hours. #Hypertensive urgency #Past COVID infection x 3 months ago #ESRD on dialysis [Saturday//Saturday] #Type 2 diabetes Rest of the management as per primary care team. Plan will discussed with neurologist, Dr Angella Bennett MD, PGY 3
[2025-07-29] MEDS: cefTRIAXone 2 GM in SODIUM CHLORIDE 0.9% (Popper) 50 ML IV (16:58)
[2025-07-29] MEDS: RINGERS LACTATED 1000 ML 1,000 ML 75 ML IV (17:02)
[2025-07-29 17:28] LABS: Glucose Estimated Average 114 mg/dL (80-131); Hemoglobin A1C 5.6 % Hgb (4.8-6.0)
[2025-07-29 17:29] LABS: Cardiac Risk Estimate 4.4 RATIO (4.0-6.7); Cholesterol 155 mg/dL (132-200); HDL Cholesterol 35 mg/dL (40-60); LDL Cholesterol,Calculated 85 mg/dL (0-130); Triglycerides 177 mg/dL (30-150)
[2025-07-29] MEDS: hydrALAZINE INJ 20 MG/ML VIAL 10 MG IVP (18:03)
--- NOTE | 2025-07-29 18:21 | PC.NURSE ---
notified of blood pressure
[2025-07-29] MEDS: ATORVASTATIN CALCIUM 20 MG TABLET 40 MG PO (20:27)
[2025-07-29] MEDS: MELATONIN 3 MG TABLET 6 MG PO (23:33)
[2025-07-30] VITALS (11 sets, daily range): BP systolic 160–184; BP diastolic 80–99; PULSE 70–95; RESP 16–95; TEMP 36–37.3; O2SAT 95–98; BMI 27.3
--- NOTE | 2025-07-30 | XR_ITS ---
Examinations: MRI Brain without intravenous contrast. MRA brain without intravenous contrast. MRA carotids without intravenous contrast 3-D vascular reconstructions Date and time of exam: July 30, 2025, 0852 hours INDICATIONS: Bilateral lower extremity weakness beginning today. Technique: Multiple axial and sagittal images of the brain have been obtained MRA brain carotid images without contrast obtained, including 3-D postprocessing, vascular maximum intensity projection images Findings: [place] is not enlarged. The optic chiasm and infundibular stalk are not remarkable. Prepontine and interpeduncular cisterns are not enlarged. No localized enlargement of the medulla or pepe. Fourth ventricle and cerebellar tonsils normal in position. Subacute hemorrhage is not seen. Fourth ventricle is midline. Mass in the cerebellopontine angle region is not evident. 7th and 8th nerve complexes exhibits symmetry. Globes are symmetrical with no retro-orbital mass. Increased white matter signal moderate Diffusion-weighted images demonstrate no focus of restricted diffusion Mass-effect upon the ventricular system is not identified. MRA carotid images no significant carotid stenoses. MRA brain images no large vessel occlusions Impression: Negative for acute hemorrhage, mass effect or midline shift No acute infarct Moderate chronic microvascular white matter change
--- NOTE | 2025-07-30 00:26 | RESP.EEG ---
EEG was started and was able to complete about half of the procedure until Pt became uncooperative and refused to finish the exam. RN Jennifer was made aware. EEG stopped.
[2025-07-30 05:52] LABS: Basophils # (Auto) 0.1 Thou/mm3 (0.0-0.2); Basophils % (Auto) 1 % (0-2.5); Eosinophils # (Auto) 0.1 Thou/mm3 (0.0-0.5); Eosinophils % (Auto) 1 % (0-10); Hematocrit 42.5 % (41.0-53.0); Hemoglobin 14.0 g/dL (13.5-16.0); Immature Granulocytes Auto 0.02 Thou/mm3 (0.00-0.00); Lymphocytes # (Auto) 1.0 Thou/mm3 (1.0-4.8); Lymphocytes % (Auto) 13 % (10-50); Mean Corpuscular HGB Conc 32.9 g/dl (31.0-37.0); Mean Corpuscular Hemoglobin 31.2 pg (25.0-35.0); Mean Corpuscular Volume 95 fL (80-100); Monocytes # (Auto) 0.8 Thou/mm3 (0.0-0.8); Monocytes % (Auto) 10 % (0-12); Neutrophils # (Auto) 5.9 Thou/mm3 (1.8-7.7); Neutrophils % (Auto) 75 % (37-80); Nucleated Red Blood Cell # 0.00 Thou/mm3 (0.00-0.00); Nucleated Red Blood Cell % 0 /100 WBC (0); Platelet Count 235 Thou/mm3 (140-440); RDW Standard Deviation 51.8 fL (35.1-43.9); Red Blood Count 4.49 Miln/mm3 (4.50-5.90); White Blood Count 7.9 Thou/mm3 (3.8-10.6)
[2025-07-30 06:14] LABS: Vitamin B12 912 pg/mL (211-911)
[2025-07-30 06:37] LABS: Alanine Aminotransferase < 7 U/L (10-49); Albumin, Serum 4.2 gm/dL (3.4-4.8); Albumin/Globulin Ratio 1.7 (1.2-2.2); Alkaline Phosphatase 73 U/L (46-116); Anion Gap 15 (7-16); Aspartate Amino Transferase 11 U/L (0-34); BUN/Creatinine Ratio 5 Ratio (12-20); Bilirubin,Total 0.6 mg/dL (0.3-1.2); Blood Urea Nitrogen 33 mg/dL (9-23); Calcium 9.2 mg/dL (8.3-10.6); Calcium (Corrected) 9.2 mg/dL (8.5-10.1); Carbon Dioxide 23.8 mMol/L (20.0-31.0); Chloride 99 mMol/L (98-107); Creatinine (Component) 7.0 mg/dL (0.6-1.3); Estimated Creatinine Clearance 8.1 mL/min (>60); Globulin 2.5 gm/dL (2.3-3.5); Glucose 123 mg/dL (74-106); Magnesium 2.1 mg/dL (1.6-2.6); Osmolality,Calculated 283 (275-295); Phosphorous 6.3 mg/dL (2.4-5.1); Potassium 5.4 mMol/L (3.4-5.1); Sodium 138 mMol/L (136-145); Thyroid Stimulating Hormone 3.96 uIU/mL (0.55-4.78); Total Protein 6.7 gm/dL (5.7-8.2); eGFR 8 See Note
--- NOTE | 2025-07-30 07:41 | ESPR_ITS ---
<Statement entered by Elisabeth Nagy MD - 07/30/25 14:24> Patient is 74-year-old male who admitted yesterday for rule out CVA.Workup thus far including CT head, CTA head and neck, brain MRI negative for any acute findings or hemorrhage. No LVO. Symptoms have resolved with no new deficits noticeable on exam. Neurology consulted recommend to continue aspirin 81 mg daily atorvastatin 40 mg daily. Possible etiology includes seizure. EEG read is still pending. In-house nephrology also consulted to resume inpatient dialysis sessions. Plan for next session tomorrow on Saturday. EEG read and echo are pending. Continue IV antibiotics for possible UTI, urine cultures are pending. The patient's management plan was discussed with my attending physician Dr. Roa. Elisabeth Nagy, PGY-2 Documentation for date of: 07/30/25 Subjective Subjective Interval history: Mr Flores is a 74 yo M with a hx of ESRD TTS (follows with Dr. Navarrete) ?consistency with hd sessions, htn, t2dm, hld who presents to the ed with c/c ble weakness following his hd session today. Pt is accompanied by his who states that he has had some confusion for the past few months, he did not attend hd session on saturday because he was feeling weak. he attended his morning hd session earlier today and when his session completed he realized that he could not move his lower extremeties, he endorsed some parasthesias. He states that he sat in the hd chair for an additional hour before he regained some feeling in his legs. these symptoms prompted him to present to the ED per , pt has had some ground level falls without headstrike 3 months ago, she notes that he is often holding on to objects around the house to get around and ambulates very slowly. PMH: previously on PD for 2 years, newly on HD for past 2 months, HTN, t2DM, HLD Surg: PD port removal Meds: to bring meds to the hospital ROS endorses dizziness, lower extremitiy weakness and decreased sensation, vision changes , chills denies fever, nausea, vomiting, bowel changes, ED course stroke alert called, BP elevated, tele neuro consulted nihss 7. Pertinent labs, abg ph 7.52, a1c 5.6, BNP 407, elevated tryglcerides, UA leuk esterase positive with 13 wbc, rare bacteria Pertinent imaging : CT head, Negative for acute hemorrhage, mass effect or midline shift, CTA head and neck with no occlusions, cxr, no pna 07/30/2025: patient seen and examined at bedside in tele. was not at bedside. pt continues to be confused but slightly more oriented to person, place, and time. Appears to have some baseline dementia. MRI brain with white matter changes, Negative for acute hemorrhage, mass effect or midline shift. EEG pending, echo pending. Exam Vital Signs Temp Pulse Resp BP Pulse Ox O2 Del Method 97.8 F 84 18 168/95 H 97 Room Air 07/30/25 04:00 07/30/25 04:00 07/30/25 04:00 07/30/25 04:00 07/30/25 04:00 07/30/25 04:00 Narrative Exam GENERAL: no acute distress, AAO x2, comfortably laying in bed HEENT: Head AT/ NC. Mucous membranes moist. PERRL. NECK: Supple, no lymphadenopathy, no carotid bruits. CARDIOVASCULAR: RRR. Normal S1/S2, No m/r/g. No pitting edema of bilateral LEs. RESPIRATORY: CTAB. No wheezing, rhonchi, crackles. GASTROINTESTINAL: Abdomen soft, non tender no palpable masses. Bowel sounds present MUSCULOSKELETAL:? No cyanosis or edema, no visible joint swelling. NEUROLOGICAL: CN II-XII grossly intact. normal sensation of LLE, 5/5 and RLE 5/5. 5/5 BUE, better at following commands, PSYCHIATRIC: Awake and alert, not agitated, normal mood and affect. SKIN: No obvious rashes, no jaundice, normal turgor. Objective Labs 07/30/25 05:23 07/30/25 05:23 Labs: Laboratory Results - last 24 hr 07/29/25 07/29/25 07/29/25 13:53 14:25 14:35 WBC 6.8 RBC 4.55 Hgb 14.3 Hct 42.2 MCV 93 MCH 31.4 MCHC 33.9 RDW Std Deviation 48.9 H Plt Count 286 Neut % (Auto) 73 Lymph % (Auto) 16 [place] % (Auto) 8 Eos % (Auto) 2 Baso % (Auto) 1 Neut # (Auto) 4.9 Lymph # (Auto) 1.1 [place] # (Auto) 0.5 Eos # (Auto) 0.1 Baso # (Auto) 0.0 Immature Gran # (Auto) 0.03 H Absolute Nucleated RBC 0.00 Immature Gran % 0 Nucleated RBC % 0 PT 11.3 INR 1.0 APTT 31.7 Puncture Site Right Radial ABG pH 7.52 H ABG pCO2 27 L ABG pO2 113 H ABG HCO3 22 ABG O2 Saturation 99 H ABG Base Excess 1 FiO2 21 Sodium 137 Potassium 4.4 Chloride 98 Carbon Dioxide 24.3 Anion Gap 15 BUN 32 H Creatinine 5.1 H* Estim Creat Clear Calc Not Performed. eGFR 11 L* BUN/Creatinine Ratio 6 L Glucose [address] Glu mg/dL Hemoglobin A1c Calculated Osmolality 282 Calcium 9.6 Corrected Calcium 9.6 Phosphorus Magnesium 2.1 Total Bilirubin 0.7 AST 19 ALT < 7 L Alkaline Phosphatase 82 Troponin I < 0.020 B-Natriuretic Peptide 407 H Total Protein 7.6 Albumin 4.9 H Globulin 2.7 Albumin/Globulin Ratio 1.8 Triglycerides Cholesterol LDL Cholesterol, Calc HDL Cholesterol Cholesterol/HDL Ratio Vitamin B12 TSH Ur Collection Type Urine Color Urine Clarity Urine pH Ur Specific [place] Urine Protein Urine Glucose (UA) Urine Ketones Urine Blood Urine Nitrite Urine Bilirubin Urine Urobilinogen (Auto) Ur Leukocyte Esterase Urine RBC Urine WBC Ur Squamous Epith Cells Urine Bacteria Ur Culture Indicated? Urine Opiates Screen Urine Fentanyl Screen Ur Barbiturates Screen U Amphetamin/Meth Scrn U Benzodiazepines Scrn U Cocaine Metab Screen U Marijuana (THC) Screen 07/29/25 07/29/25 07/30/25 15:16 16:39 05:23 WBC 7.9 RBC 4.49 L Hgb 14.0 Hct 42.5 MCV 95 MCH 31.2 MCHC 32.9 RDW Std Deviation 51.8 H Plt Count 235 D Neut % (Auto) 75 Lymph % (Auto) 13 [place] % (Auto) 10 Eos % (Auto) 1 Baso % (Auto) 1 Neut # (Auto) 5.9 Lymph # (Auto) 1.0 [place] # (Auto) 0.8 Eos # (Auto) 0.1 Baso # (Auto) 0.1 Immature Gran # (Auto) 0.02 H Absolute Nucleated RBC 0.00 Immature Gran % 0 Nucleated RBC % 0 PT INR APTT Puncture Site ABG pH ABG pCO2 ABG pO2 ABG HCO3 ABG O2 Saturation ABG Base Excess FiO2 Sodium 138 Potassium 5.4 H D Chloride 99 Carbon Dioxide 23.8 Anion Gap 15 BUN 33 H Creatinine 7.0 H* D Estim Creat Clear Calc 8.1 L eGFR 8 L* BUN/Creatinine Ratio 5 L Glucose [address] Glu mg/dL 114 Hemoglobin A1c 5.6 Calculated Osmolality 283 Calcium 9.2 Corrected Calcium 9.2 Phosphorus 6.3 H Magnesium 2.1 Total Bilirubin 0.6 AST 11 ALT < 7 L Alkaline Phosphatase 73 Troponin I B-Natriuretic Peptide Total Protein 6.7 Albumin 4.2 D Globulin 2.5 Albumin/Globulin Ratio 1.7 Triglycerides 177 H Cholesterol 155 LDL Cholesterol, Calc 85 HDL Cholesterol 35 L Cholesterol/HDL Ratio 4.4 Vitamin B12 912 H TSH 3.96 Ur Collection Type Clean Catch Urine Color Colorless A Urine Clarity Clear Urine pH 7.[address] [place] 1.010 Urine Protein 1+ A Urine Glucose (UA) 2+ A Urine Ketones Negative Urine Blood Trace Urine Nitrite Negative Urine Bilirubin Negative Urine Urobilinogen (Auto) Negative Ur Leukocyte Esterase Positive Urine RBC 4 H Urine WBC 13 H Ur Squamous Epith Cells < 1 Urine Bacteria Rare Ur Culture Indicated? Yes Urine Opiates Screen Negative Urine Fentanyl Screen Negative Ur Barbiturates Screen Negative U Amphetamin/Meth Scrn Negative U Benzodiazepines Scrn Negative U Cocaine Metab Screen Negative U Marijuana (THC) Screen Negative ABG Interpretation ABG results: 07/29/25 14:25 ABG pH 7.52 H ABG pCO2 27 L ABG pO2 113 H ABG HCO3 22 ABG O2 Saturation 99 H ABG Base Excess 1 Quality Measures Quality Measures stroke Suspected type of Stroke: Unknown at this time Last known well (date): 07/29/25 Last known well (time): 12:41 Tenecteplase given: Reason(s) Tenecteplase not given: Stroke severity too mild (non-disabling) (Per tele-neuro etiology metabolic) not given Rehab services: PT evaluation ordered and Speech Language Pathology eval ordered VTE Prophylaxis: mechanical Antithrombotic by day 2:: not indicated (describe) Statin ordered: <75 y/o high intensity dose Anticoagulation ordered for A-fib or flutter (current or hx): not indicated Advance care planning discussed with:: patient Assessment & Plan Assessment Current Active Medications: Generic Name Dose Route Start Last Admin Trade Name Freq PRN Reason Stop Dose Admin Acetaminophen 650 mg 07/29/25 16:01 Acetaminophen 325 Mg Tablet PO 08/28/25 16:00 Q6H PRN Fever >101.5 Acetaminophen 650 mg 07/29/25 16:01 Acetaminophen 325 Mg Tablet PO 08/28/25 16:00 Q6H PRN PAIN SCALE 1-3 (mild Aspirin 81 mg 07/29/25 14:45 07/29/25 14:45 Aspirin Ec 81 Mg Tabec PO 08/28/25 14:44 81 mg QDAY GERDA Administration Atorvastatin Calcium 40 mg 07/29/25 21:00 07/29/25 20:27 Atorvastatin Calcium 20 Mg Tablet PO 08/28/25 20:59 40 mg HS GERDA Administration Dextrose 25 ml 07/29/25 21:17 Dextrose 50%-Water Inj 50 Ml Syringe IV 08/28/25 21:16 Q15MIN PRN BG 50-70 responsive npo pt Dextrose 50 ml 07/29/25 21:17 Dextrose 50%-Water Inj 50 Ml Syringe IV 08/28/25 21:16 Q15MIN PRN BG <50 OR BG <70 & pt unresponsive Docusate Sodium 100 mg 07/29/25 21:00 07/29/25 20:36 Docusate Sod Liqd 100 Mg/10 Ml Udc PO 08/28/25 20:59 Not Given BID GERDA Protocol Glucagon 1 mg 07/29/25 21:17 Glucagon Inj 1 Mg Vial IM Q15MIN PRN BG <70, and no IV access Heparin Sodium (Porcine) 5,000 unit 07/29/25 21:00 07/29/25 20:52 Heparin Sod Inj 5000 Unit/Ml Vial SC 08/12/25 20:59 Not Given Q12HR [facility] Hydralazine HCl 10 mg 07/29/25 18:27 Hydralazine Inj 20 Mg/Ml Vial IVP 08/28/25 17:51 Q6H PRN sbp > 180 and< 220 , DBP > 110 Lactated Ringer's 1,000 mls @ 75 mls/hr 07/29/25 16:15 07/30/25 05:02 Lactated Ringers IV 08/28/25 16:14 Not Given .[id number] [facility] Ceftriaxone Sodium/Dextrose 1 gm in 50 mls @ 100 mls/hr 07/30/25 09:00 Rocephin/D5w 1gm Iv Premix IV 08/06/25 08:59 QDAY [facility] Insulin Human Lispro 0 unit 07/30/25 00:00 07/30/25 05:47 Insulin Lispro (Admelog) 1 Unit/0.01 Ml Unit SC 08/29/25 00:00 Not Given Q6HR [facility] Protocol Labetalol HCl 10 mg 07/29/25 16:11 Labetalol Inj 5 Mg/Ml Vial 20 Ml IVP 08/28/25 16:14 Q6H PRN HTN SBP>220, DBP>110 Ondansetron HCl 4 mg 07/29/25 13:44 07/29/25 14:45 Ondansetron Inj 2 Mg/Ml Inj 2 Ml IVP 08/28/25 13:43 4 mg Q4HR PRN Administration NAUSEA OR VOMITING Pantoprazole Sodium 40 mg 07/29/25 18:15 07/29/25 20:52 Pantoprazole Inj 40 Mg Vial IVP 08/28/25 18:14 Not Given QDAY [facility] Plan Mr Flores is a 74 yo M with a hx of ESRD TTS (follows with Dr. Navarrete) ?consistency with hd sessions, htn, t2dm, hld who presents to the ed with c/c ble weakness following his hd session today, admitted for stroke rule out, allowing for permissive htn until stroke is ruled out. on physical exam he has word finding difficulties, difficulty following commands, decreased sensation of LLE, deminished strength on the L side in house neuro consulted, appreciate recs. suspect PRES , stroke ruled out, restarted home antihypertensive medications. continues on HD per his usual schedule TTS. ?Acute ischemic Stroke - RULED OUT vs ?Acute encephalopathy- improved vs ?hypertensive emergency vs ?posterior reversible encephalopathy syndrome (PRES) Patient was not deemed a candidate for tPA because last known well was greater than 4.5 hours NIHSS score of 7 pt presented with c/f bilateral LE weakness preventing him from ambulating after HD, pt reported that he missed HD session on saturday BP elevated upon presentation to the ed, may be poorly controlled outpatient Dx * NCHCT Negative for acute hemorrhage, mass effect or midline shift * CTA head neck No significant neck arterial stenosis. No cerebral large vessel arterial occlusions or thrombus * Brain MRI wo contrast Negative for acute hemorrhage, mass effect or midline shift, white matter changes * Echo with bubble pending * EEG pending read * A1c 5.6 * TSH wnl * B12 900s * Lipid panel (tryglicerides 171 elevated) * In-house neurologist consulted: Dr. Perales, appreciate recs Tx * ASA 81 mg daily * Atorvastatin 40 mg at bedtime * will restart his home bp meds now that stroke is ruled out. ESRD on HD TTS GFR [address] Navarrete BUN 32, Cr 5.1, does not appear volume overloaded on exam, no LE edema, no crackles. ?compliance with getting HD, reports missing saturday session this week, Pt went to HD on . - Consult jonh anguiano for inpatient HD during admission - avoid nephrotoxic agents - renally dose medications - restart sevelamer carbonate with meals T2DM not on insulin - well controlled a1c 5.6 hold home glipizide 5 mg po bid hold pioglitazone 30 mg qd - ISS HTN restart home bp meds (will up titrate as needed) - amlodipine 5 mg qd - lisinopril 40 qd Gait instability hx falls , lives at home with his wive, indpendent of adls, uses cane sometimes. - pt evaluation: Patient is independent with transfers and ambulation without AD. dementia? reports c/f stepwise decline - f/u tsh and b12, - consider moca outpatient HLD holding home lovastatin 40 mg qhs - atorvastatin 40 qhs UTI vs Pyuria pt denies LUTS, UA with 2+ Glucose, 1+ protein, Leukesterase + Ucx pending - CTX 1 gm qd (07/29- Constipation - docusate 100 mg PRN Dispo: tele, stroke rule out, pending MRI, and echo, in house neuro consulted Diet: pending speech eval Bowel Reg: docusate 100 mg prn VTE ppx: heparin 5000sq ( pt refused, SCD) GI ppx: protonix 40 qd Code status: FULL Attending Provider Attestation/Addendum I have discussed and was present for the essential components of the history, physical examination, diagnosis, and treatment plan with the resident. I agree with the patient's care as documented by the resident and amended herein by me. Vik Roa DO. Although this document has been carefully reviewed, there may still be some phonetic and other typographical errors. These errors are purely grammatical due to imperfections in the software program and should not be construed in any way to compromise the substance of the patient's medical care during this visit.
--- NOTE | 2025-07-30 08:16 | EKG_ITS ---
[facility] Test Date: 2025-07-30 Pat Name: MANNY AREVALO Department: Room: S263-A Gender: Male [employer]: ANGIE : 1950 Requested By: Mine Stevenson Order Number: [id number] Reading MD: Mine Stevenson Measurements Intervals [place] Rate: 100 P: 50 WI: 209 QRS: -60 QRSD: 146 T: 44 QT: 379 QTc: 490 Interpretive Statements SINUS TACHYCARDIA POSSIBLE LEFT ATRIAL ENLARGEMENT RIGHT BUNDLE BRANCH BLOCK LEFT ANTERIOR FASCICULAR BLOCK Compared to ECG 07/29/2025 14:12:45 Sinus rhythm no longer present First degree AV block no longer present /store/S0/[id number]
--- NOTE | 2025-07-30 08:41 | PD.RESCONSUL ---
HPI Data of Consult Consult date: 07/30/25 Requesting Physician: Sandeep Roa DO Admitting Provider: Sandeep Roa DO Attending Provider: Sandeep Roa DO Primary Care Provider: Physician No Primary/Family Consult Narrative Reason for consult: ESRD History of present illness: 74-year-old male with past medical history of ESRD (HD on //Sat), hypertension, DM2, and hyperlipidemia was admitted to the hospital on 07/29/2025 for stroke rule out given ongoing confusion and difficulty walking. Patient stated that he did not know why he was in the hospital that they just brought him in or after dialysis, as per chart review patient is confused at baseline and had mentioned that during hemodialysis yesterday patient was not feeling good and cannot walk and was feeling very weak. At baseline patient is confused for the last 2 or 3 months. Patient was only recently started on hemodialysis through a tunneled cath on the right side around 2 months [address] and follows [address] Navarrete. Nephrology was consulted for management of ESRD and need for hemodialysis through hospital stay. ED course: Patient initially came in with complaints of bilateral lower extremity weakness after hemodialysis yesterday. Patient's vitals showed hypertension, tachycardia, and afebrile. Initial labs were relevant for acute BUN of 32, creatinine 5.1, GFR of 11, BNP 407, and urine was positive for bacteria, protein, WBC, and RBC. PMH: As above Surgical Hx: Dialysis catheter placement Social Hx: Denies any alcohol, smoking, illicit drugs Allergies: NKDA cc:: cc: Sandeep Roa DO Review of Systems Review of Systems Systems Reviewed: All systems reviewed, normal except as documented Past Medical History Past Medical History Comments PMH COMMENT: PMH: Positive for ESRD on HD TTS follows Dr. Navarrete, hypertension, hyperlipidemia and diabetes mellitus PSHx: Peritoneal dialysis, permanent dialysis catheter placement Allergies: No known allergies Social history: -Smoking: Denies -Alcohol Use: Denies -Martial Status: , at bedside Family History: No pertinent family history Exam Vital Signs Temp Pulse Resp BP Pulse Ox O2 Del Method 96.8 F 78 16 171/91 H 95 Room Air 07/30/25 08:00 07/30/25 08:00 07/30/25 08:00 07/30/25 08:00 07/30/25 08:00 07/30/25 08:00 Narrative Exam Gen: A&O X 3, NAD, confused in providing accurate history. HEENT: NCAT, EOMI, Pupils reactive GLADYS, not icteric. External ears normal. No rhinorrhea. Moist mucous membranes. Neck: Supple, full range of motion, no observable masses, No meningeal sign. Lungs: No Respiratory distress, clear bilateral. CV: RRR, no murmurs. Abdomen: Soft, nondistended, No rebound tenderness. MSK: No joint swelling, no redness, peripheral pulses presents, lumbar with no edema. Skin: No rashes, petechiae, lesions. Neuro: No focal neurological deficits appreciated, sensory and motor intact. Confused in providing history, but A/Ox3 Psych: Irritated Results Labs 07/31/25 05:06 07/31/25 05:06 Labs: Short CBC 07/29/25 07/30/25 Range/Units 13:53 05:23 WBC 6.8 7.9 (3.8-10.6) Thou/mm3 Hgb 14.3 14.0 (13.5-16.0) g/dL Hct 42.2 42.5 (41.0-53.0) % Plt Count 286 235 D (140-440) Thou/mm3 BMP 07/29/25 07/30/25 13:53 05:23 Sodium 137 138 Potassium 4.4 5.4 H D Chloride 98 99 Carbon Dioxide 24.3 23.8 BUN 32 H 33 H Creatinine 5.1 H* 7.0 H* D Glucose 139 H 123 H Calcium 9.6 9.2 Cardiac Enzymes 07/29/25 Range/Units 13:53 Troponin I < 0.020 (0.0-0.045) ng/mL Liver Function 07/29/25 07/30/25 Range/Units 13:53 05:23 Total Bilirubin 0.7 0.6 (0.3-1.2) mg/dL AST 19 11 (0-34) U/L ALT < 7 L < 7 L (10-49) U/L Alkaline Phosphatase 82 73 (46-116) U/L Albumin 4.9 H 4.2 D (3.4-4.8) gm/dL Urine 07/29/25 Range/Units 15:16 Urine Color Colorless A (Lt Yel-Yel) Urine Clarity Clear (Clear/Hazy) Urine pH 7.5 H (5.0-7.0) Ur Specific Frederic 1.010 (1.001-1.035) Urine Protein 1+ A (Neg - Trace) Urine Glucose (UA) 2+ A (Negative) ABG Interpretation ABG results: 07/29/25 14:25 ABG pH 7.52 H ABG pCO2 27 L ABG pO2 113 H ABG HCO3 22 ABG O2 Saturation 99 H ABG Base Excess 1 Quality Measures Quality Measures stroke Suspected type of Stroke: Unknown at this time Last known well (date): 07/29/25 Last known well (time): 12:41 Tenecteplase given: Reason(s) Tenecteplase not given: Stroke severity too mild (non-disabling) (Per tele-neuro etiology metabolic) not given Rehab services: PT evaluation ordered and Speech Language Pathology eval ordered VTE Prophylaxis: not indicated Antithrombotic by day 2:: not indicated (describe) Statin ordered: <75 y/o high intensity dose Anticoagulation ordered for A-fib or flutter (current or hx): not indicated Advance care planning discussed with:: patient Medications Home Medications and Allergies Home Medications ?Medication ?Instructions ?Recorded ?Confirmed ?Type pioglitazone 30 mg tablet (Actos) 30 mg PO QDAY #0 tabs 02/28/14 07/30/25 History lovastatin 40 mg tablet 40 mg PO QPM 01/17/21 07/30/25 History amlodipine 5 mg tablet 5 mg PO QDAY 07/30/25 07/30/25 History lisinopril 40 mg tablet 40 mg PO BID 07/30/25 07/30/25 History sevelamer carbonate 800 mg tablet 1,600 mg PO .WITH MEALS 07/30/25 07/30/25 History Allergies Allergy/AdvReac Type Severity Reaction Status Date / Time No Known Allergies Allergy Verified 07/29/25 13:41 Visit Medications Acetaminophen (Acetaminophen 325 Mg Tablet) 650 mg PO Q6H PRN PRN Reason: Fever >101.5 Stop: 08/28/25 16:00 Acetaminophen (Acetaminophen 325 Mg Tablet) 650 mg PO Q6H PRN PRN Reason: PAIN SCALE 1-3 (mild Stop: 08/28/25 16:00 Aspirin (Aspirin Ec 81 Mg Tabec) 81 mg PO QDAY GERDA Stop: 08/28/25 14:44 Last Admin: 07/29/25 14:45 Dose: 81 mg Atorvastatin Calcium (Atorvastatin Calcium 20 Mg Tablet) 40 mg PO HS [facility] Stop: 08/28/25 20:59 Last Admin: 07/29/25 20:27 Dose: 40 mg Dextrose (Dextrose 50%-Water Inj 50 Ml Syringe) 25 ml IV Q15MIN PRN PRN Reason: BG 50-70 responsive npo pt Stop: 08/28/25 21:16 Dextrose (Dextrose 50%-Water Inj 50 Ml Syringe) 50 ml IV Q15MIN PRN PRN Reason: BG <50 OR BG <70 & pt unresponsive Stop: 08/28/25 21:16 Docusate Sodium (Docusate Sod Liqd 100 Mg/10 Ml Udc) 100 mg PO BID [facility]; Protocol Stop: 08/28/25 20:59 Last Admin: 07/29/25 20:36 Dose: Not Given Glucagon (Glucagon Inj 1 Mg Vial) 1 mg IM Q15MIN PRN PRN Reason: BG <70, and no IV access Heparin Sodium (Porcine) (Heparin Sod Inj 5000 Unit/Ml Vial) 5,000 unit SC Q12HR [facility] Stop: 08/12/25 20:59 Last Admin: 07/29/25 20:52 Dose: Not Given Hydralazine HCl (Hydralazine Inj 20 Mg/Ml Vial) 10 mg IVP Q6H PRN PRN Reason: SBP > 220mmHg or DBP > 110mmHg Stop: 08/28/25 17:51 Ceftriaxone Sodium/Dextrose (Rocephin/D5w 1gm Iv Premix) 1 gm in 50 mls @ 100 mls/hr IV QDAY [facility] Stop: 08/06/25 08:59 Insulin Human Lispro (Insulin Lispro (Admelog) 1 Unit/0.01 Ml Unit) 0 unit SC ACHS [facility]; Protocol Stop: 08/29/25 11:29 Labetalol HCl (Labetalol Inj 5 Mg/Ml Vial 20 Ml) 10 mg IVP Q6H PRN PRN Reason: HTN SBP>220, DBP>110 Stop: 08/28/25 16:14 Ondansetron HCl (Ondansetron Inj 2 Mg/Ml Inj 2 Ml) 4 mg IVP Q4HR PRN PRN Reason: NAUSEA OR VOMITING Stop: 08/28/25 13:43 Last Admin: 07/29/25 14:45 Dose: 4 mg Pantoprazole Sodium (Pantoprazole Inj 40 Mg Vial) 40 mg IVP QDAY GERDA Stop: 08/28/25 18:14 Last Admin: 07/29/25 20:52 Dose: Not Given Sevelamer Carbonate (Sevelamer Carbonate 800 Mg Tablet) 800 mg PO TIDWM [facility] Stop: 08/29/25 11:59 Discontinued Medications Enalaprilat (Enalaprilat Inj 1.25 Mg/Ml Vial) 1.25 mg IVP X1 ONE Stop: 07/29/25 14:36 Last Admin: 07/29/25 15:05 Dose: 1.25 mg Hydralazine HCl (Hydralazine Inj 20 Mg/Ml Vial) 10 mg IVP PRN PRN PRN Reason: sbp > 220, DBP > 110 Stop: 08/28/25 17:49 Hydralazine HCl (Hydralazine Inj 20 Mg/Ml Vial) 10 mg IVP Q6H PRN PRN Reason: sbp > 180, DBP > 110 Stop: 08/28/25 17:51 Hydralazine HCl (Hydralazine Inj 20 Mg/Ml Vial) 10 mg IVP Q6H PRN PRN Reason: sbp > 180, DBP > 110 Stop: 08/28/25 17:51 Last Admin: 07/29/25 18:03 Dose: 10 mg Hydralazine HCl (Hydralazine Inj 20 Mg/Ml Vial) 10 mg IVP Q6H PRN PRN Reason: sbp > 180 and< 220 , DBP > 110 Stop: 08/28/25 17:51 Ceftriaxone Sodium 2 gm/ (Sodium Chloride) 50 mls @ 100 mls/hr IV X1 ONE Stop: 07/29/25 16:23 Last Admin: 07/29/25 16:58 Dose: 100 mls/hr Lactated Ringer's (Lactated Ringers) 1,000 mls @ 75 mls/hr IV .[id number] [facility] Stop: 08/28/25 16:14 Last Admin: 07/30/25 05:02 Dose: Not Given Insulin Human Lispro (Insulin Lispro (Admelog) 1 Unit/0.01 Ml Unit) 0 unit SC Q6HR [facility]; Protocol Stop: 08/29/25 00:00 Last Admin: 07/30/25 05:47 Dose: Not Given Labetalol HCl (Labetalol Inj 5 Mg/Ml Vial 20 Ml) 10 mg IVP Q6H PRN PRN Reason: HTN SBP>220, DBP>110 Stop: 08/28/25 16:14 Melatonin (Melatonin 3 Mg Tablet) 6 mg PO X1 ONE Stop: 07/29/25 23:06 Last Admin: 07/29/25 23:33 Dose: 6 mg Assessment & Plan Plan 74-year-old male with past medical history of ESRD (HD on ), hypertension, DM2, and hyperlipidemia was admitted to the hospital on 07/29/2025 for stroke rule out given ongoing confusion and difficulty walking. #ESRD on HD #Hyperkalemia Patient is fairly new to hemodialysis was just started around 2 or 3 months ago. Patient has a right sided tunneled dialysis catheter Patient receives hemodialysis on Tuesdays, , and Saturdays Last hemodialysis session was on the day of admission yesterday Patient's initial creatinine was 5.1 with a BUN of 3.2 and GFR of 11 on admission Currently patient's potassium of 5.4, BUN 33, creatinine 7, and GFR of 8 Plan: Continue hemodialysis schedule Can give Kayexalate for hyperkalemia Avoid nephrotoxic agents Renally dose medications Other diseases: #Acute encephalopathy, multifactorial #Possible press syndrome, stroke, seizures, dementia, hypertensive urgency #Hypertensive urgency #Type 2 diabetes Management as per primary care team Thank you for allowing us to be part of the patient's care. Case disclosed with Attending Dr. Ana Almanza PGY2 Disclaimer: Even though this this note was dictated by speech recognition and even though it was carefully revised there may still be minor errors in manager mental health due to voice recognition software. Attending Provider Attestation/Addendum Patient seen and examined with resident physician Dr. Branch. Note reviewed, agree with findings and recommendations. Next dialysis scheduled for tomorrow. Still seems to be confused. Thank you Vik for allowing me to participate in the care of Mr. Flores
[2025-07-30] MEDS: HEPARIN SOD INJ 5000 UNIT/ML VIAL SC ×2 (10:09→21:31)
[2025-07-30] MEDS: ASPIRIN EC 81 MG TABEC PO (10:09)
[2025-07-30] MEDS: DOCUSATE SOD LIQD 100 MG/10 ML UDC PO ×2 (10:09→21:30)
[2025-07-30] MEDS: cefTRIAXone/D5w 1gm IV premix 1 GM/50 ML BAG IV (10:34)
--- NOTE | 2025-07-30 12:03 | PC.SS ---
HEAD OF BUSINESS DEVELOPMENT conducted bedside contact with the patient conduct initial assessment and to discuss discharge planning.? Patient confirmed demographic information.? Patient resides at home with spouse, Eden Flores .? Patient is retired. ?Patient does not utilize any form of DME to assist with ambulation.? Patient does not utilize home oxygen.? Patient describes the ability to complete ADL?s independently.? Patient identified spouse, Eden Flores; as medical surrogate decision maker.? Patient?s PCP is Oralia Swain.? Patient?s slitter service and setter is Tyler Vaca.? Patient possesses history of diabetes, non-insulin dependent.? Plan is for the patient to return home at the time of discharge.? Family will provide transportation on behalf of the patient.? No further discharge needs identified by the patient.? No further intervention required at this time, environmental services project manager will be available to address any further concerns.? Next of Kin: Eden Flores D/C Plan: Home
[2025-07-30] MEDS: INSULIN LISPRO (AdmeLOG) 1 UNIT/0.01 ML UNIT SC ×2 (12:51→21:31)
[2025-07-30] MEDS: SEVELAMER CARBONATE 800 MG TABLET PO ×2 (12:51→17:51)
--- NOTE | 2025-07-30 13:52 | PC.PT ---
PT eval only. Patient is I with transfers and ambulation without AD.
--- NOTE | 2025-07-30 14:31 | PC.SS ---
Rounding Note: Patient is pending following: ECHO, EGD and MRI.
--- NOTE | 2025-07-30 15:20 | CHAP ---
Patient was visited by the Spiritual Care Volunteer who prayed for them. (Volunteer was in the hospital from 13:09-15:20)
[2025-07-30] MEDS: ATORVASTATIN CALCIUM 20 MG TABLET 40 MG PO (21:30)
[2025-07-30] MEDS: MELATONIN 3 MG TABLET PO (21:30)
--- NOTE | 2025-07-30 23:27 | ESPR_ITS ---
Documentation for date of: 07/30/25 Subjective Subjective Interval history: Seen in telemetry today, no new symptoms reported. Remains confused more than yesterday. Exam - Neurology Vital Signs Temp Pulse Resp BP Pulse Ox O2 Del Method 99.1 F 82 19 166/89 H 98 Room Air 07/30/25 19:50 07/30/25 20:54 07/30/25 20:54 07/30/25 20:54 07/30/25 20:54 07/30/25 20:54 Objective Labs 07/30/25 05:23 07/30/25 05:23 Labs: Laboratory Results - last 24 hr 07/30/25 05:23 WBC 7.9 RBC 4.49 L Hgb 14.0 Hct 42.5 MCV 95 MCH 31.2 MCHC 32.9 RDW Std Deviation 51.8 H Plt Count 235 D Neut % (Auto) 75 Lymph % (Auto) 13 Buchanan % (Auto) 10 Eos % (Auto) 1 Baso % (Auto) 1 Neut # (Auto) 5.9 Lymph # (Auto) 1.0 Buchanan # (Auto) 0.8 Eos # (Auto) 0.1 Baso # (Auto) 0.1 Immature Gran # (Auto) 0.02 H Absolute Nucleated RBC 0.00 Immature Gran % 0 Nucleated RBC % 0 Sodium 138 Potassium 5.4 H D Chloride 99 Carbon Dioxide 23.8 Anion Gap 15 BUN 33 H Creatinine 7.0 H* D Estim Creat Clear Calc 8.1 L eGFR 8 L* BUN/Creatinine Ratio 5 L Glucose 123 H Calculated Osmolality 283 Calcium 9.2 Corrected Calcium 9.2 Phosphorus 6.3 H Magnesium 2.1 Total Bilirubin 0.6 AST 11 ALT < 7 L Alkaline Phosphatase 73 Total Protein 6.7 Albumin 4.2 D Globulin 2.5 Albumin/Globulin Ratio 1.7 Vitamin B12 912 H TSH 3.96 ABG Interpretation ABG results: 07/29/25 14:25 ABG pH 7.52 H ABG pCO2 27 L ABG pO2 113 H ABG HCO3 22 ABG O2 Saturation 99 H ABG Base Excess 1 Assessment & Plan Assessment and plan (1) CVA (cerebral vascular accident): Status: Ruled-out Assessment and plan: MRI brain resulted negative for acute infarction continue with ASA and statin and other vascular risk factors control (2) Dementia with psychotic disturbance: Status: Acute Assessment and plan: will try Donepezil 5 mg at bedtime and Seroquel 25 mg qhs prn for hallucinations FU with EEG
[2025-07-31] VITALS (28 sets, daily range): BP systolic 125–188; BP diastolic 67–101; PULSE 76–115; RESP 12–97; TEMP 36.5–37.4; O2SAT 97–100; BMI 25.2
--- NOTE | 2025-07-31 00:46 | PC.NURSE ---
DR BRENNAN NOTIFIED OF BP 186/99 , HR 75. PT RESTING ON BED. MD WILL REVIEW CHART. NO NEW ORDER.
[2025-07-31] MEDS: hydrALAZINE INJ 20 MG/ML VIAL 10 MG IVP ×2 (01:04→15:47)
[2025-07-31] MEDS: ACETAMINOPHEN 325 MG TABLET 650 MG PO ×2 (03:16→22:35)
[2025-07-31 05:45] LABS: Basophils # (Auto) 0.1 Thou/mm3 (0.0-0.2); Basophils % (Auto) 1 % (0-2.5); Eosinophils # (Auto) 0.2 Thou/mm3 (0.0-0.5); Eosinophils % (Auto) 2 % (0-10); Hematocrit 42.5 % (41.0-53.0); Hemoglobin 13.9 g/dL (13.5-16.0); Immature Granulocytes Auto 0.03 Thou/mm3 (0.00-0.00); Lymphocytes # (Auto) 1.5 Thou/mm3 (1.0-4.8); Lymphocytes % (Auto) 16 % (10-50); Mean Corpuscular HGB Conc 32.7 g/dl (31.0-37.0); Mean Corpuscular Hemoglobin 31.7 pg (25.0-35.0); Mean Corpuscular Volume 97 fL (80-100); Monocytes # (Auto) 1.1 Thou/mm3 (0.0-0.8); Monocytes % (Auto) 12 % (0-12); Neutrophils # (Auto) 6.5 Thou/mm3 (1.8-7.7); Neutrophils % (Auto) 69 % (37-80); Nucleated Red Blood Cell # 0.00 Thou/mm3 (0.00-0.00); Nucleated Red Blood Cell % 0 /100 WBC (0); Platelet Count 235 Thou/mm3 (140-440); RDW Standard Deviation 52.4 fL (35.1-43.9); Red Blood Count 4.39 Miln/mm3 (4.50-5.90); White Blood Count 9.4 Thou/mm3 (3.8-10.6)
[2025-07-31 06:39] LABS: Alanine Aminotransferase < 7 U/L (10-49); Albumin, Serum 4.3 gm/dL (3.4-4.8); Albumin/Globulin Ratio 1.6 (1.2-2.2); Alkaline Phosphatase 74 U/L (46-116); Anion Gap 19 (7-16); Aspartate Amino Transferase 13 U/L (0-34); BUN/Creatinine Ratio 4 Ratio (12-20); Bilirubin,Total 0.4 mg/dL (0.3-1.2); Blood Urea Nitrogen 35 mg/dL (9-23); Calcium 9.1 mg/dL (8.3-10.6); Calcium (Corrected) 9.1 mg/dL (8.5-10.1); Carbon Dioxide 17.7 mMol/L (20.0-31.0); Chloride 100 mMol/L (98-107); Creatinine (Component) 8.6 mg/dL (0.6-1.3); Estimated Creatinine Clearance 5.8 mL/min (>60); Globulin 2.7 gm/dL (2.3-3.5); Glucose 145 mg/dL (74-106); Magnesium 2.2 mg/dL (1.6-2.6); Osmolality,Calculated 284 (275-295); Phosphorous 7.2 mg/dL (2.4-5.1); Potassium 4.6 mMol/L (3.4-5.1); Sodium 137 mMol/L (136-145); Total Protein 7.0 gm/dL (5.7-8.2); eGFR 6 See Note
[2025-07-31] MEDS: SEVELAMER CARBONATE 800 MG TABLET PO ×3 (07:35→17:55)
[2025-07-31] MEDS: PANTOPRAZOLE 40 MG TABLET PO (08:20)
[2025-07-31] MEDS: ASPIRIN EC 81 MG TABEC PO (08:20)
[2025-07-31] MEDS: DOCUSATE SOD LIQD 100 MG/10 ML UDC PO (08:20)
[2025-07-31] MEDS: HEPARIN SOD INJ 5000 UNIT/ML VIAL SC (08:21)
--- NOTE | 2025-07-31 08:42 | PD.RESDS ---
Planned Discharge Date 07/31/25 DS: Providers Provider Date of admission: 07/29/25 16:01 Primary care physician: Physician No Primary/Family Admitting Provider: Sandeep Roa DO Attending Provider on Admission: Sandeep Roa DO Consults: 07/29/25 13:45 Consult to Neurology / Tele-Neurology Routine Comment: Consulting Provider: [facility] 07/29/25 16:01 Consult to Nephrology Stat Comment: ESRD TTS, Consulting Provider: Curt Perez 07/29/25 16:08 Referral Physical Therapy Routine Comment: Physician Instructions: Instructions: stroke r/o LE weakness and diminished sensation on LLE Referral Speech Therapy Routine Comment: 07/30/25 02:06 Consult to Neurology / Tele-Neurology Routine Comment: Consulting Provider: Sky Perales Attending Provider on DC: Mine Stevenson MD Discharging Provider: Mine Stevenson MD Hospital Course Hospital Course Hospital course: Mr Flores is a 74 yo M with a hx of ESRD TTS (follows with Dr. Navarrete) ?consistency with hd sessions, htn, t2dm, hld who presents to the ed with c/c ble weakness following his hd session today. Pt is accompanied by his who states that he has had some confusion for the past few months, he did not attend hd session on saturday because he was feeling weak. he attended his morning hd session earlier today and when his session completed he realized that he could not move his lower extremeties, he endorsed some parasthesias. He states that he sat in the hd chair for an additional hour before he regained some feeling in his legs. these symptoms prompted him to present to the ED per , pt has had some ground level falls without headstrike 3 months ago, she notes that he is often holding on to objects around the house to get around and ambulates very slowly. PMH: previously on PD for 2 years, newly on HD for past 2 months, HTN, t2DM, HLD Surg: PD port removal Meds: to bring meds to the hospital ROS endorses dizziness, lower extremitiy weakness and decreased sensation, vision changes , chills denies fever, nausea, vomiting, bowel changes, ED course stroke alert called, BP elevated, tele neuro consulted nihss 7. Pertinent labs, abg ph 7.52, a1c 5.6, BNP 407, elevated tryglcerides, UA leuk esterase positive with 13 wbc, rare bacteria Pertinent imaging : CT head, Negative for acute hemorrhage, mass effect or midline shift, CTA head and neck with no occlusions, cxr, no pna 07/30/2025: patient seen and examined at bedside in tele. was not at bedside. pt continues to be confused but slightly more oriented to person, place, and time. Appears to have some baseline dementia. MRI brain with white matter changes, Negative for acute hemorrhage, mass effect or midline shift. EEG pending, echo pending. Time Spent with Patient Time attestation: Total time spent providing and/or coordinating discharge services: Exam Vital Signs Temp Pulse Resp BP Pulse Ox O2 Del Method 99.4 F 99 19 146/93 H 97 Room Air 07/31/25 04:00 07/31/25 08:20 07/31/25 04:00 07/31/25 08:20 07/31/25 04:00 07/31/25 04:00 Discharge Plan Plan Patient Disposition: HOME (Self Care) Patient condition on transfer: Stable Prescriptions/Referrals Prescriptions/Med Rec: No Action pioglitazone [Actos] 30 MG tablet 30 mg PO QDAY Qty: 0 Patient Comments: FOR DIABETES lovastatin 40 mg Tablet 40 mg PO QPM amlodipine 5 mg tablet 5 mg PO QDAY Patient Comments: TAKE ONE TABLET BY MOUTH EVERY DAY HIGH BLOOD PRESSURE lisinopril 40 mg tablet 40 mg PO BID Patient Comments: TAKE ONE TABLET BY MOUTH TWICE DAILY FOR BLOOD PRESSURE sevelamer carbonate 800 mg tablet 1,600 mg PO .WITH MEALS Patient Comments: TAKE TWO TABLETS BY MOUTH THREE TIMES DAILY WITH FOOD Referrals: No Primary/Family,Physician [Primary Care Provider] Patient/Caregiver Discharge Instructions Print Language: Malagasy Stand Alone Forms: Priya Award Info., Patient Portal Info Letter
--- NOTE | 2025-07-31 10:40 | ESPR_ITS ---
<Statement entered by Ana Luisa Perales MD - 07/31/25 14:26> Patient seen and examined at bedside. No acute overnight events reported. Patient continues to be confused at bedside, however is able to be redirected and mention his name, year, and city/place he is currently at. However, patient isn't able to answer all questions, and starts bring up old stories with no relevance to the given question. Per neurology recs, patient would benefit from Donepezil at HS, and Seroquel 25mg as needed for hallucinations. Pending final urine cultures and echocardiogram. Anticipate discharge within 48 hours. I discussed with and supervised the architectural intern physician who took care of this patient. I personally saw and examined the patient and discussed the assessment and plan with the entire medicine team, including my attending Dr. Roa, I agree with most of the assessment and plan as documented below Ana Luisa Perales M.D. PGY-3 Documentation for date of: 07/31/25 Subjective Subjective Interval history: Mr Flores is a 74 yo M with a hx of ESRD TTS (follows with Dr. Navarrete) ?consistency with hd sessions, htn, t2dm, hld who presents to the ed with c/c ble weakness following his hd session today. Pt is accompanied by his who states that he has had some confusion for the past few months, he did not attend hd session on saturday because he was feeling weak. he attended his morning hd session earlier today and when his session completed he realized that he could not move his lower extremeties, he endorsed some parasthesias. He states that he sat in the hd chair for an additional hour before he regained some feeling in his legs. these symptoms prompted him to present to the ED per , pt has had some ground level falls without headstrike 3 months ago, she notes that he is often holding on to objects around the house to get around and ambulates very slowly. PMH: previously on PD for 2 years, newly on HD for past 2 months, HTN, t2DM, HLD Surg: PD port removal Meds: to bring meds to the hospital ROS endorses dizziness, lower extremitiy weakness and decreased sensation, vision changes , chills denies fever, nausea, vomiting, bowel changes, ED course stroke alert called, BP elevated, tele neuro consulted nihss 7. Pertinent labs, abg ph 7.52, a1c 5.6, BNP 407, elevated tryglcerides, UA leuk esterase positive with 13 wbc, rare bacteria Pertinent imaging : CT head, Negative for acute hemorrhage, mass effect or midline shift, CTA head and neck with no occlusions, cxr, no pna 07/30/2025: patient seen and examined at bedside in tele. was not at bedside. pt continues to be confused but slightly more oriented to person, place, and time. Appears to have some baseline dementia. MRI brain with white matter changes, Negative for acute hemorrhage, mass effect or midline shift. EEG pending, echo pending. 07/31/2025: Patient seen and examined at bedside in telemetry. not at bedside patient sitting at edge of bed, chatting with the sitter. He continues to be confused but oriented x 2. EEG read is pending echo is pending he will have HD today per is usual TTS schedule. BP meds restarted given stroke was ruled out. Neuro recs donezapil 5 mg qhs and seroquel 25 qhs prn. will follow up post hd renal panel. Exam Vital Signs Temp Pulse Resp BP Pulse Ox O2 Del Method 97.7 F 99 16 146/93 H 99 Room Air 07/31/25 08:00 07/31/25 08:20 07/31/25 08:00 07/31/25 08:20 07/31/25 08:00 07/31/25 08:00 Narrative Exam GENERAL: no acute distress, AAO x2, sitting upright at the edge of the bed. HEENT: Head AT/ NC. Mucous membranes moist. PERRL. NECK: Supple, no lymphadenopathy, no carotid bruits. CARDIOVASCULAR: RRR. Normal S1/S2, No m/r/g. No pitting edema of bilateral LEs. RESPIRATORY: CTAB. No wheezing, rhonchi, crackles. GASTROINTESTINAL: Abdomen soft, non tender no palpable masses. Bowel sounds present MUSCULOSKELETAL:? No cyanosis or edema, no visible joint swelling. NEUROLOGICAL: CN II-XII grossly intact. normal sensation intact PSYCHIATRIC: Awake and alert, not agitated, normal mood and affect. SKIN: No obvious rashes, no jaundice, normal turgor. Objective Labs 07/31/25 05:06 07/31/25 05:06 Labs: Laboratory Results - last 24 hr 07/31/25 05:06 WBC 9.4 RBC 4.39 L Hgb 13.9 Hct 42.5 MCV 97 MCH 31.7 MCHC 32.7 RDW Std Deviation 52.4 H Plt Count 235 Neut % (Auto) 69 Lymph % (Auto) 16 [place] % (Auto) 12 Eos % (Auto) 2 Baso % (Auto) 1 Neut # (Auto) 6.5 Lymph # (Auto) 1.5 [place] # (Auto) 1.1 H Eos # (Auto) 0.2 Baso # (Auto) 0.1 Immature Gran # (Auto) 0.03 H Absolute Nucleated RBC 0.00 Immature Gran % 0 Nucleated RBC % 0 Sodium 137 Potassium 4.6 D Chloride 100 Carbon Dioxide 17.7 L Anion Gap 19 H BUN 35 H Creatinine 8.6 H* D Estim Creat Clear Calc 5.8 L eGFR 6 L* BUN/Creatinine Ratio 4 L Glucose 145 H Calculated Osmolality 284 Calcium 9.1 Corrected Calcium 9.1 Phosphorus 7.2 H Magnesium 2.2 Total Bilirubin 0.4 AST 13 ALT < 7 L Alkaline Phosphatase 74 Total Protein 7.0 Albumin 4.3 Globulin 2.7 Albumin/Globulin Ratio 1.6 ABG Interpretation ABG results: 07/29/25 14:25 ABG pH 7.52 H ABG pCO2 27 L ABG pO2 113 H ABG HCO3 22 ABG O2 Saturation 99 H ABG Base Excess 1 Quality Measures Quality Measures stroke Suspected type of Stroke: Unknown at this time Last known well (date): 07/29/25 Last known well (time): 12:41 Tenecteplase given: Reason(s) Tenecteplase not given: Stroke severity too mild (non-disabling) (Per tele-neuro etiology metabolic) not given Rehab services: PT evaluation ordered and Speech Language Pathology eval ordered VTE Prophylaxis: pharmaceutical Antithrombotic by day 2:: ordered Statin ordered: <75 y/o high intensity dose Anticoagulation ordered for A-fib or flutter (current or hx): ordered Advance care planning discussed with:: patient Assessment & Plan Assessment Current Active Medications: Generic Name Dose Route Start Last Admin Trade Name Freq PRN Reason Stop Dose Admin Acetaminophen 650 mg 07/29/25 16:01 Acetaminophen 325 Mg Tablet PO 08/28/25 16:00 Q6H PRN Fever >101.5 Acetaminophen 650 mg 07/29/25 16:01 07/31/25 03:16 Acetaminophen 325 Mg Tablet PO 08/28/25 16:00 650 mg Q6H PRN Administration PAIN SCALE 1-3 (mild Amlodipine Besylate 5 mg 07/30/25 17:00 07/31/25 08:20 Amlodipine Besylate 5 Mg Tablet PO 08/29/25 16:59 5 mg QDAY GERDA Administration Aspirin 81 mg 07/29/25 14:45 07/31/25 08:20 Aspirin Ec 81 Mg Tabec PO 08/28/25 14:44 81 mg QDAY GERDA Administration Atorvastatin Calcium 40 mg 07/29/25 21:00 07/30/25 21:30 Atorvastatin Calcium 20 Mg Tablet PO 08/28/25 20:59 40 mg HS GERDA Administration Dextrose 25 ml 07/29/25 21:17 Dextrose 50%-Water Inj 50 Ml Syringe IV 08/28/25 21:16 Q15MIN PRN BG 50-70 responsive npo pt Dextrose 50 ml 07/29/25 21:17 Dextrose 50%-Water Inj 50 Ml Syringe IV 08/28/25 21:16 Q15MIN PRN BG <50 OR BG <70 & pt unresponsive Docusate Sodium 100 mg 07/29/25 21:00 07/31/25 08:20 Docusate Sod Liqd 100 Mg/10 Ml Udc PO 08/28/25 20:59 100 mg BID GERDA Administration Protocol Donepezil HCl 5 mg 07/31/25 21:00 Donepezil Hcl 5 Mg Tablet PO 08/30/25 20:59 HS GERDA Glucagon 1 mg 07/29/25 21:17 Glucagon Inj 1 Mg Vial IM Q15MIN PRN BG <70, and no IV access Heparin Sodium (Porcine) 5,000 unit 07/29/25 21:00 07/31/25 08:21 Heparin Sod Inj 5000 Unit/Ml Vial SC 08/12/25 20:59 5,000 unit Q12HR GERDA Administration Hydralazine HCl 10 mg 07/31/25 00:48 07/31/25 01:04 Hydralazine Inj 20 Mg/Ml Vial IVP 08/28/25 17:51 10 mg Q6H PRN Administration SBP > 180mmHg Insulin Human Lispro 0 unit 07/30/25 11:30 07/31/25 07:40 Insulin Lispro (Admelog) 1 Unit/0.01 Ml Unit SC 08/29/25 11:29 Not Given ACHS GERDA Protocol Lisinopril 40 mg 07/30/25 17:00 07/31/25 08:19 Lisinopril 20 Mg Tablet PO 08/29/25 16:59 40 mg QDAY GERDA Administration Ondansetron HCl 4 mg 07/29/25 13:44 07/29/25 14:45 Ondansetron Inj 2 Mg/Ml Inj 2 Ml IVP 08/28/25 13:43 4 mg Q4HR PRN Administration NAUSEA OR VOMITING Pantoprazole Sodium 40 mg 07/31/25 09:00 07/31/25 08:20 Pantoprazole 40 Mg Tablet PO 08/30/25 08:59 40 mg QDAY GERDA Administration Quetiapine Fumarate 25 mg 07/31/25 08:03 Quetiapine Fumarate 25 Mg Tablet PO 08/30/25 20:59 HS PRN hallucinations Sevelamer Carbonate 800 mg 07/30/25 12:00 07/31/25 07:35 Sevelamer Carbonate 800 Mg Tablet PO 08/29/25 11:59 800 mg TIDWM GERDA Administration Plan Mr Flores is a 74 yo M with a hx of ESRD TTS (follows with Dr. Navarrete) ?consistency with hd sessions, htn, t2dm, hld who presents to the ed with c/c ble weakness following his hd session today, admitted for stroke rule out, allowing for permissive htn until stroke is ruled out. on physical exam he has word finding difficulties, difficulty following commands, decreased sensation of LLE, deminished strength on the L side in house neuro consulted, appreciate recs. suspect PRES , stroke ruled out, restarted home antihypertensive medications. continues on HD per his usual schedule TTS. started on donezapil and seroquel qhs prn. pending echo dementia suspected with psychotic features reports c/f stepwise decline tsh and b12 wnl - neuro recs donezapil 5 mg qhs and serequel 25 qhs prn - consider moca outpatient ESRD on HD TTS GFR [address] Navarrete BUN 32, Cr 5.1, does not appear volume overloaded on exam, no LE edema, no crackles. ?compliance with getting HD, reports missing saturday session this week, Pt went to HD on . - Consult nephrojonh for inpatient HD during admission - avoid nephrotoxic agents - renally dose medications - restart sevelamer carbonate with meals - HD today, f/u post hd renal panel ?Acute ischemic Stroke - RULED OUT vs ?Acute encephalopathy vs ?hypertensive emergency vs ?posterior reversible encephalopathy syndrome (PRES) Patient was not deemed a candidate for tPA because last known well was greater than 4.5 hours NIHSS score of 7 pt presented with c/f bilateral LE weakness preventing him from ambulating after HD, pt reported that he missed HD session on saturday BP elevated upon presentation to the ed, may be poorly controlled outpatient Dx * NCHCT Negative for acute hemorrhage, mass effect or midline shift * CTA head neck No significant neck arterial stenosis. No cerebral large vessel arterial occlusions or thrombus * Brain MRI wo contrast Negative for acute hemorrhage, mass effect or midline shift, white matter changes * Echo pending * EEG pending read * In-house neurologist consulted: Dr. Perales, appreciate recs Tx * ASA 81 mg daily * Atorvastatin 40 mg at bedtime T2DM not on insulin - well controlled a1c 5.6 hold home glipizide 5 mg po bid hold pioglitazone 30 mg qd - ISS (pt sometimes refusing to get insulin) HTN restart home bp meds - amlodipine 5 mg qd - lisinopril 40 qd Gait instability hx falls , lives at home with his wive, indpendent of adls, uses cane sometimes. - pt evaluation: Patient is independent with transfers and ambulation without AD. HLD holding home lovastatin 40 mg qhs - atorvastatin 40 qhs UTI vs Pyuria pt denies LUTS, UA with 2+ Glucose, 1+ protein, Leukesterase + Ucx pending - CTX 1 gm qd (07/29- Constipation - docusate 100 mg PRN Dispo: tele, stroked rule out, pending echo, will get HD today. Diet: renal diet Bowel Reg: docusate 100 mg prn VTE ppx: heparin 5000sq GI ppx: protonix 40 qd Code status: FULL Plan discussed with Dr Perales, and Dr. Crispin Stevenson MD PGY1 Attending Provider Attestation/Addendum I have discussed and was present for the essential components of the history, physical examination, diagnosis, and treatment plan with the resident. I agree with the patient's care as documented by the resident and amended herein by me. Vik Roa DO. Although this document has been carefully reviewed, there may still be some phonetic and other typographical errors. These errors are purely grammatical due to imperfections in the software program and should not be construed in any way to compromise the substance of the patient's medical care during this visit. Patient seen and evaluated this AM. No acute events overnight, vital signs stable, patient afebrile, significant labs today include a bicarb of 17.7 and an anion gap of 19. BUN 35 and creatinine 8.6. Patient is scheduled for dialysis today. MRI brain negative for any acute intracranial pathology, echo is pending and EEG is pending. Neurology consulted, appreciate recommendations, will continue to monitor closely. Of note, neurology did recommend starting donepezil and Seroquel which has been added.
--- NOTE | 2025-07-31 10:54 | PD.NEPHPROG ---
Documentation for date of: 07/31/25 Subjective Subjective Interval history: 74-year-old male with past medical history of ESRD (HD on ), hypertension, DM2, and hyperlipidemia was admitted to the hospital on 07/29/2025 for stroke rule out given ongoing confusion and difficulty walking. Patient stated that he did not know why he was in the hospital that they just brought him in or after dialysis, as per chart review patient is confused at baseline and had mentioned that during hemodialysis yesterday patient was not feeling good and cannot walk and was feeling very weak. At baseline patient is confused for the last 2 or 3 months. Patient was only recently started on hemodialysis through a tunneled cath on the right side around 2 [address] Navarrete. Nephrology was consulted for management of ESRD and need for hemodialysis through hospital stay. ED course: Patient initially came in with complaints of bilateral lower extremity weakness after hemodialysis yesterday. Patient's vitals showed hypertension, tachycardia, and afebrile. Initial labs were relevant for acute BUN of 32, creatinine 5.1, GFR of 11, BNP 407, and urine was positive for bacteria, protein, WBC, and RBC. 07/31/2025 patient currently seen in dialysis. Still remains confused. Denies any chest pain, shortness of breath. Review of Systems Review of Systems Narrative Review of Systems: Limited due to his mentation Exam Vital Signs Temp Pulse Resp BP Pulse Ox O2 Del Method 36.5 C 99 16 146/93 H 99 Room Air 07/31/25 08:00 07/31/25 08:20 07/31/25 08:00 07/31/25 08:20 07/31/25 08:00 07/31/25 08:00 Narrative Exam GENERAL APPEARANCE: Patient confused. Currently on dialysis NECK: Neck supple, no JVD or bruit CARDIOVASCULAR: Heart regular, no murmurs LUNGS/CHEST: Chest clear to auscultation. No rales, rhonchi, wheezing ABDOMEN: Soft, nontender, nondistended. No masses. Normal bowel sounds. EXTREMITIES: No edema, clubbing or cyanosis. SKIN: Skin exam normal without any rashes MUSCULOSKELETAL: in bed NEUROLOGICAL : Patient confused Objective Labs 07/31/25 05:06 07/31/25 05:06 Labs: Laboratory Results - last 24 hr 07/31/25 05:06 WBC 9.4 RBC 4.39 L Hgb 13.9 Hct 42.5 MCV 97 MCH 31.7 MCHC 32.7 RDW Std Deviation 52.4 H Plt Count 235 Neut % (Auto) 69 Lymph % (Auto) 16 [place] % (Auto) 12 Eos % (Auto) 2 Baso % (Auto) 1 Neut # (Auto) 6.5 Lymph # (Auto) 1.5 [place] # (Auto) 1.1 H Eos # (Auto) 0.2 Baso # (Auto) 0.1 Immature Gran # (Auto) 0.03 H Absolute Nucleated RBC 0.00 Immature Gran % 0 Nucleated RBC % 0 Sodium 137 Potassium 4.6 D Chloride 100 Carbon Dioxide 17.7 L Anion Gap 19 H BUN 35 H Creatinine 8.6 H* D Estim Creat Clear Calc 5.8 L eGFR 6 L* BUN/Creatinine Ratio 4 L Glucose 145 H Calculated Osmolality 284 Calcium 9.1 Corrected Calcium 9.1 Phosphorus 7.2 H Magnesium 2.2 Total Bilirubin 0.4 AST 13 ALT < 7 L Alkaline Phosphatase 74 Total Protein 7.0 Albumin 4.3 Globulin 2.7 Albumin/Globulin Ratio 1.6 ABG Interpretation ABG results: 07/29/25 14:25 ABG pH 7.52 H ABG pCO2 27 L ABG pO2 113 H ABG HCO3 22 ABG O2 Saturation 99 H ABG Base Excess 1 Assessment & Plan Assessment and plan (1) CVA (cerebral vascular accident): Status: Ruled-out (2) Dementia with psychotic disturbance: Status: Acute Additional Assessment & Plan Additional Plan: 74-year-old male with past medical history of ESRD (HD on ), hypertension, DM2, and hyperlipidemia was admitted to the hospital on 07/29/2025 for stroke rule out given ongoing confusion and difficulty walking. #ESRD on HD #Hyperkalemia Patient is fairly new to hemodialysis was just started around 2 or 3 months ago-under Dr. Navarrete Patient has a right sided tunneled dialysis catheter Patient receives hemodialysis on Tuesdays, , and Saturdays L Patient's initial creatinine was 5.1 with a BUN of 3.2 and GFR of 11 on admission Currently patient's potassium of 5.4, BUN 33, creatinine 7, and GFR of 8 Plan: Patient currently seen on dialysis. Tolerating dialysis without any problems. Hemodialysis for 3 hours, 2K, ultrafiltration 1 L, Epogen 6000, no heparin ordered. Plan of care discussed with the dialysis nurse. Please see dialysis flowsheet for further details. Avoid nephrotoxic agents Renally dose medications Other diseases: #Acute encephalopathy, multifactorial #Possible press syndrome, stroke, seizures, dementia, hypertensive urgency #Hypertensive urgency #Type 2 diabetes Management as per primary care team
[2025-07-31] MEDS: INSULIN LISPRO (AdmeLOG) 1 UNIT/0.01 ML UNIT SC ×2 (12:20→17:55)
--- NOTE | 2025-07-31 13:49 | PC.NURSE ---
dr. STARKS made aware of patient BP 181/95. as per MD reassess when patient gets back from dialysis.
[2025-07-31] MEDS: HEPARIN SOD INJ 1000 UNIT/ML VIAL 10 ML 3500 UNIT INDWELLCAT (16:30)
--- NOTE | 2025-07-31 21:13 | PC.NURSE ---
pt refused all 2100 meds and refused to let the RN check his blood sugar. pt was educated on the importance of taking medications and checking his blood sugar however he still refused and told staff to get out of his room and leave him alone. Dr Turner made aware.
--- NOTE | 2025-07-31 23:16 | VVPN_ITS ---
Telemedicine visit statement This visit was conducted with the use of phone was obtained on 07/31/25 at 2316. Documentation for date of: 07/31/25 Subjective Subjective Interval history: Patient is in telemetry today, no new symptoms reported. More confused in the evenings, got the Seroquel tonight. Virtual exam Vital Signs Temp Pulse Resp BP Pulse Ox O2 Del Method 98.6 F 92 12 156/96 H 98 Room Air 07/31/25 19:53 07/31/25 20:00 07/31/25 19:53 07/31/25 19:53 07/31/25 19:53 07/31/25 19:53 Objective Labs 07/31/25 05:06 07/31/25 05:06 Labs: Laboratory Results - last 24 hr 07/31/25 05:06 WBC 9.4 RBC 4.39 L Hgb 13.9 Hct 42.5 MCV 97 MCH 31.7 MCHC 32.7 RDW Std Deviation 52.4 H Plt Count 235 Neut % (Auto) 69 Lymph % (Auto) 16 [place] % (Auto) 12 Eos % (Auto) 2 Baso % (Auto) 1 Neut # (Auto) 6.5 Lymph # (Auto) 1.5 [place] # (Auto) 1.1 H Eos # (Auto) 0.2 Baso # (Auto) 0.1 Immature Gran # (Auto) 0.03 H Absolute Nucleated RBC 0.00 Immature Gran % 0 Nucleated RBC % 0 Sodium 137 Potassium 4.6 D Chloride 100 Carbon Dioxide 17.7 L Anion Gap 19 H BUN 35 H Creatinine 8.6 H* D Estim Creat Clear Calc 5.8 L eGFR 6 L* BUN/Creatinine Ratio 4 L Glucose 145 H Calculated Osmolality 284 Calcium 9.1 Corrected Calcium 9.1 Phosphorus 7.2 H Magnesium 2.2 Total Bilirubin 0.4 AST 13 ALT < 7 L Alkaline Phosphatase 74 Total Protein 7.0 Albumin 4.3 Globulin 2.7 Albumin/Globulin Ratio 1.6 ABG Interpretation ABG results: 07/29/25 14:25 ABG pH 7.52 H ABG pCO2 27 L ABG pO2 113 H ABG HCO3 22 ABG O2 Saturation 99 H ABG Base Excess 1 Assessment & Plan Problem List (1) Dementia with psychotic disturbance: Status: Acute Assessment and plan: Patient has early dementia with psychosis Continue with Seroquel at bedtime Consider adding Donepezil 5 mg at bedtime to slow down the progression.
[2025-08-01] VITALS (9 sets, daily range): BP systolic 128–177; BP diastolic 78–96; PULSE 76–106; RESP 16–97; TEMP 36.2–36.7; O2SAT 96–99
[2025-08-01 05:42] LABS: Basophils # (Auto) 0.1 Thou/mm3 (0.0-0.2); Basophils % (Auto) 1 % (0-2.5); Eosinophils # (Auto) 0.2 Thou/mm3 (0.0-0.5); Eosinophils % (Auto) 3 % (0-10); Hematocrit 40.6 % (41.0-53.0); Hemoglobin 13.5 g/dL (13.5-16.0); Immature Granulocytes Auto 0.01 Thou/mm3 (0.00-0.00); Lymphocytes # (Auto) 1.8 Thou/mm3 (1.0-4.8); Lymphocytes % (Auto) 25 % (10-50); Mean Corpuscular HGB Conc 33.3 g/dl (31.0-37.0); Mean Corpuscular Hemoglobin 31.5 pg (25.0-35.0); Mean Corpuscular Volume 95 fL (80-100); Monocytes # (Auto) 1.0 Thou/mm3 (0.0-0.8); Monocytes % (Auto) 14 % (0-12); Neutrophils # (Auto) 4.0 Thou/mm3 (1.8-7.7); Neutrophils % (Auto) 57 % (37-80); Nucleated Red Blood Cell # 0.00 Thou/mm3 (0.00-0.00); Nucleated Red Blood Cell % 0 /100 WBC (0); Platelet Count 204 Thou/mm3 (140-440); RDW Standard Deviation 50.6 fL (35.1-43.9); Red Blood Count 4.28 Miln/mm3 (4.50-5.90); White Blood Count 7.1 Thou/mm3 (3.8-10.6)
[2025-08-01 06:24] LABS: Alanine Aminotransferase < 7 U/L (10-49); Albumin, Serum 4.2 gm/dL (3.4-4.8); Albumin/Globulin Ratio 1.7 (1.2-2.2); Alkaline Phosphatase 66 U/L (46-116); Anion Gap 15 (7-16); Aspartate Amino Transferase 13 U/L (0-34); BUN/Creatinine Ratio 5 Ratio (12-20); Bilirubin,Total 0.6 mg/dL (0.3-1.2); Blood Urea Nitrogen 31 mg/dL (9-23); Calcium 9.1 mg/dL (8.3-10.6); Calcium (Corrected) 9.1 mg/dL (8.5-10.1); Carbon Dioxide 25.4 mMol/L (20.0-31.0); Chloride 98 mMol/L (98-107); Creatinine (Component) 6.7 mg/dL (0.6-1.3); Estimated Creatinine Clearance 7.5 mL/min (>60); Globulin 2.5 gm/dL (2.3-3.5); Glucose 111 mg/dL (74-106); Magnesium 2.0 mg/dL (1.6-2.6); Osmolality,Calculated 283 (275-295); Phosphorous 5.8 mg/dL (2.4-5.1); Potassium 4.0 mMol/L (3.4-5.1); Sodium 138 mMol/L (136-145); Total Protein 6.7 gm/dL (5.7-8.2); eGFR 8 See Note
--- NOTE | 2025-08-01 07:49 | PD.RESPRO ---
Documentation for date of: 08/01/25 Subjective Subjective Interval history: History of Present Illness: 74 yo M with a hx of ESRD TTS (follows with Dr. Navarrete) ?consistency with hd sessions, htn, t2dm, hld who presents to the hospital on 07/29/2025 due to ?weakness following his hd session. Pt is accompanied by his who states that he has had some confusion for the past few months, he did not attend previous hd session on saturday because he was feeling weak. he attended his morning hd session earlier today and when his session completed he realized that he could not move his lower extremeties, he endorsed some parasthesias. He states that he sat in the hd chair for an additional hour before he regained some feeling in his legs. these symptoms prompted him to present to the ED. per , pt has had some ground level falls without headstrike 3 months ago, she notes that he is often holding on to objects around the house to get around and ambulates very slowly. Patient was admitted for further management including stroke workup. Nephrology was consulted for management of ESRD and need for hemodialysis through hospital stay. ED course: Patient initially came in with complaints of bilateral lower extremity weakness after hemodialysis yesterday. Patient's vitals showed hypertension, tachycardia, and afebrile. Initial labs were relevant for acute BUN of 32, creatinine 5.1, GFR of 11, BNP 407, and urine was positive for bacteria, protein, WBC, and RBC. PMH: previously on PD for 2 years, newly on HD for past 2 months, HTN, t2DM, HLD Surg: PD port removal Meds: to bring meds to the hospital 07/31/2025: patient currently seen in dialysis. Still remains confused. Denies any chest pain, shortness of breath. 08/01/2025: Labs reviewed and patient examined at the bedside. Patient slightly confused. AAOx2. Planned for hemodialysis next Saturday. BUN: 31, Cr:6.7, eGFR:8 Exam Vital Signs Temp Pulse Resp BP Pulse Ox O2 Del Method 97.4 F 92 18 158/91 H 97 Room Air 08/01/25 04:00 08/01/25 04:00 08/01/25 04:00 08/01/25 04:00 08/01/25 04:00 07/31/25 19:53 Narrative Exam General: No acute distress, well nourished, AAO x2 Eye: PERRL, EOMI, normal conjunctiva, no scleral icterus HENT: Normocephalic, atraumatic, hearing intact to conversation at normal volume, moist oral mucosa Neck: Supple, non-tender, no JVD, no lymphadenopathy Lungs: Non-labored respirations, symmetric chest rise, Clear to auscultate bilaterally, No wheezing, rhonchi, crackles Heart: Peripheral pulses intact bilaterally, Regular Rate and Rhythm. Abdomen: Soft, non-tender, non-distended, no palpable masses Musculoskeletal: Normal range of motion and strength, No cyanosis or edema, No visible joint swelling Skin: Skin is warm, dry, no rashes or lesions. Psychiatric: Cooperative, appropriate mood and affect, Awake and alert, not agitated Neuro: Cranial nerves II-XII grossly intact. Sensations intact to light touch. Objective Labs 08/02/25 05:06 08/02/25 05:06 Labs: Laboratory Results - last 24 hr 08/01/25 05:10 WBC 7.1 RBC 4.28 L Hgb 13.5 Hct 40.6 L MCV 95 MCH 31.5 MCHC 33.3 RDW Std Deviation 50.6 H Plt Count 204 D Neut % (Auto) 57 Lymph % (Auto) 25 [place] % (Auto) 14 H Eos % (Auto) 3 Baso % (Auto) 1 Neut # (Auto) 4.0 Lymph # (Auto) 1.8 [place] # (Auto) 1.0 H Eos # (Auto) 0.2 Baso # (Auto) 0.1 Immature Gran # (Auto) 0.01 H Absolute Nucleated RBC 0.00 Immature Gran % 0 Nucleated RBC % 0 Sodium 138 Potassium 4.0 D Chloride 98 Carbon Dioxide 25.4 Anion Gap 15 BUN 31 H Creatinine 6.7 H* D Estim Creat Clear Calc 7.5 L eGFR 8 L* BUN/Creatinine Ratio 5 L Glucose 111 H Calculated Osmolality 283 Calcium 9.1 Corrected Calcium 9.1 Phosphorus 5.8 H Magnesium 2.0 Total Bilirubin 0.6 AST 13 ALT < 7 L Alkaline Phosphatase 66 Total Protein 6.7 Albumin 4.2 Globulin 2.5 Albumin/Globulin Ratio 1.7 ABG Interpretation ABG results: 07/29/25 14:25 ABG pH 7.52 H ABG pCO2 27 L ABG pO2 113 H ABG HCO3 22 ABG O2 Saturation 99 H ABG Base Excess 1 Quality Measures Quality Measures stroke Suspected type of Stroke: Unknown at this time Last known well (date): 07/29/25 Last known well (time): 12:41 Tenecteplase given: Reason(s) Tenecteplase not given: Stroke severity too mild (non-disabling) (Per tele-neuro etiology metabolic) not given Rehab services: PT evaluation ordered VTE Prophylaxis: pharmaceutical Antithrombotic by day 2:: ordered Statin ordered: <75 y/o high intensity dose Anticoagulation ordered for A-fib or flutter (current or hx): ordered Advance care planning discussed with:: patient Assessment & Plan Assessment Current Active Medications: Generic Name Dose Route Start Last Admin Trade Name Freq PRN Reason Stop Dose Admin Acetaminophen 650 mg 07/29/25 16:01 Acetaminophen 325 Mg Tablet PO 08/28/25 16:00 Q6H PRN Fever >101.5 Acetaminophen 650 mg 07/29/25 16:01 07/31/25 22:35 Acetaminophen 325 Mg Tablet PO 08/28/25 16:00 650 mg Q6H PRN Administration PAIN SCALE 1-3 (mild Amlodipine Besylate 5 mg 07/30/25 17:00 07/31/25 08:20 Amlodipine Besylate 5 Mg Tablet PO 08/29/25 16:59 5 mg QDAY GERDA Administration Aspirin 81 mg 07/29/25 14:45 07/31/25 08:20 Aspirin Ec 81 Mg Tabec PO 08/28/25 14:44 81 mg QDAY GERDA Administration Atorvastatin Calcium 40 mg 07/29/25 21:00 07/31/25 20:37 Atorvastatin Calcium 20 Mg Tablet PO 08/28/25 20:59 Not Given HS GERDA Dextrose 25 ml 07/29/25 21:17 Dextrose 50%-Water Inj 50 Ml Syringe IV 08/28/25 21:16 Q15MIN PRN BG 50-70 responsive npo pt Dextrose 50 ml 07/29/25 21:17 Dextrose 50%-Water Inj 50 Ml Syringe IV 08/28/25 21:16 Q15MIN PRN BG <50 OR BG <70 & pt unresponsive Docusate Sodium 100 mg 07/29/25 21:00 07/31/25 21:40 Docusate Sod Liqd 100 Mg/10 Ml Udc PO 08/28/25 20:59 Not Given BID GERDA Protocol Donepezil HCl 5 mg 07/31/25 21:00 07/31/25 20:37 Donepezil Hcl 5 Mg Tablet PO 08/30/25 20:59 Not Given HS GERDA Glucagon 1 mg 07/29/25 21:17 Glucagon Inj 1 Mg Vial IM Q15MIN PRN BG <70, and no IV access Heparin Sodium (Porcine) 5,000 unit 07/29/25 21:00 07/31/25 20:37 Heparin Sod Inj 5000 Unit/Ml Vial SC 08/12/25 20:59 Not Given Q12HR GERDA Heparin Sodium (Porcine) 3,500 unit 07/31/25 16:16 07/31/25 16:30 Heparin Sod Inj 1000 Unit/Ml Vial 10 Ml INDWELLCAT 08/14/25 16:15 3,500 unit X1 PRN Administration DIALYSIS Hydralazine HCl 10 mg 07/31/25 00:48 07/31/25 15:47 Hydralazine Inj 20 Mg/Ml Vial IVP 08/28/25 17:51 10 mg Q6H PRN Administration SBP > 180mmHg Insulin Human Lispro 0 unit 07/30/25 11:30 07/31/25 20:37 Insulin Lispro (Admelog) 1 Unit/0.01 Ml Unit SC 08/29/25 11:29 Not Given ACHS [facility] Protocol Lisinopril 40 mg 07/30/25 17:00 07/31/25 08:19 Lisinopril 20 Mg Tablet PO 08/29/25 16:59 40 mg QDAY GERDA Administration Ondansetron HCl 4 mg 07/29/25 13:44 07/29/25 14:45 Ondansetron Inj 2 Mg/Ml Inj 2 Ml IVP 08/28/25 13:43 4 mg Q4HR PRN Administration NAUSEA OR VOMITING Pantoprazole Sodium 40 mg 07/31/25 09:00 07/31/25 08:20 Pantoprazole 40 Mg Tablet PO 08/30/25 08:59 40 mg QDAY GERDA Administration Quetiapine Fumarate 25 mg 07/31/25 08:03 07/31/25 22:35 Quetiapine Fumarate 25 Mg Tablet PO 08/30/25 20:59 25 mg HS PRN Administration hallucinations Sevelamer Carbonate 800 mg 07/30/25 12:00 07/31/25 17:55 Sevelamer Carbonate 800 Mg Tablet PO 08/29/25 11:59 800 mg TIDWM GERDA Administration Plan 74 yo M with a hx of ESRD TTS (follows with Dr. Navarrete) ?consistency with hd sessions, htn, t2dm, hld who presents to the hospital on 07/29/2025 due to ?weakness following his hd session. ?Patient was admitted for further management including stroke workup. Nephrology was consulted for management of ESRD and need for hemodialysis through hospital stay. #ESRD on HD #Hyperkalemia -Patient is fairly new to hemodialysis was just started around 2 or 3 months ago-under Dr. Navarrete -Patient has a right sided tunneled dialysis catheter -Patient receives hemodialysis on Tuesdays, , and Saturdays -Patient's initial creatinine was 5.1 with a BUN of 3.2 and GFR of 11 on admission -Currently, BUN: 31, Cr:6.7, eGFR:8 -Hemodialysis sessions: 07/31 Plan: -Monitor renal function -Maintain fluid restriction, avoid nephrotoxic agents when possible, renally dose medications -Strict i and o -Hemodialysis scheduled next saturday #Acute encephalopathy, multifactorial #Possible press syndrome, stroke, seizures, dementia, hypertensive urgency #Hypertensive urgency #Type 2 diabetes -Management per Primary Hospitalist team Thank you for allowing us to participate in the care of your patient. Assessment and plan discussed with my attending physician Dr. Ana Almonte (PGY-1)- Internal medicine resident Attending Provider Attestation/Addendum Patient seen and examined with resident physician Dr. Almonte. Note reviewed, agree with findings and recommendations.
[2025-08-01] MEDS: SEVELAMER CARBONATE 800 MG TABLET PO ×3 (07:50→17:27)
[2025-08-01] MEDS: PANTOPRAZOLE 40 MG TABLET PO (08:01)
[2025-08-01] MEDS: ASPIRIN EC 81 MG TABEC PO (08:01)
[2025-08-01] MEDS: DOCUSATE SOD LIQD 100 MG/10 ML UDC PO ×2 (08:02→21:14)
[2025-08-01] MEDS: HEPARIN SOD INJ 5000 UNIT/ML VIAL SC ×2 (08:04→21:14)
--- NOTE | 2025-08-01 08:50 | ECHO_ITS ---
Transthoracic Echo Report Ht (in): 65 Wt (lb): 160 Exam Location: Echo Lab Status: Inpatient Chaperone: Vy Rodrigues Indications: Procedure Performed: BP: 177 / 95 HR: Technical Quality: Technically difficult study MEASUREMENTS (Male / Female) Normal Values 2D ECHO LV Diastolic Diameter PLAX 3.5 cm 4.2 - 5.9 / 3.9 - 5.3 cm LV Systolic Diameter PLAX 2.3 cm IVS Diastolic Thickness 1.3 cm 0.6 - 1.0 / 0.6 - 0.9 cm LVPW Diastolic Thickness 1.1 cm 0.6 - 1.0 / 0.6 - 0.9 cm LV Relative Wall Thickness 0.7 LVOT Diameter 1.9 cm Aortic Root Diameter 2.8 cm LA Systolic Diameter LX 3.8 cm 3.0 - 4.0 / 2.7 - 3.8 cm LV Ejection Fraction MOD BP 60.4 % >= 55 % LV Ejection Fraction MOD 4C 57.9 % LV Ejection Fraction 4C AL 59.2 % LV Ejection Fraction MOD 2C 62.5 % LV Ejection Fraction 2C AL 64.2 % LA Volume Index 26.5 cm?/m? 16 - 28 cm?/m? M-MODE Aortic Root Diameter MM 2.0 cm LA Systolic Diameter MM 3.6 cm LA Ao Ratio MM 1.8 AV Cusp Separation MM 1.3 cm DOPPLER AV Peak Velocity 153.0 cm/s AV Peak Gradient 9.4 mmHg AV Mean Gradient 6.0 mmHg AV Velocity Time Integral 29.5 cm LVOT Peak Velocity 115.0 cm/s LVOT Peak Gradient 5.3 mmHg LVOT Velocity Time Integral 22.3 cm AV Area Cont Eq vti 2.1 cm? AV Area Cont Eq pk 2.1 cm? LV E' Lateral Velocity 15.4 cm/s LV E' Septal Velocity 12.3 cm/s TR Peak Velocity 237.0 cm/s TR Peak Gradient 22.5 mmHg PV Peak Velocity 115.0 cm/s PV Peak Gradient 5.3 mmHg FINDINGS Left Ventricle Normal left ventricular size, systolic function with no obvious regional wall motion abnormalities. Mild LVH. The ejection fraction is visually estimated at 60-65 %. Right Ventricle The right ventricle is normal in size and systolic function. Left Atrium The left atrium is normal by two-dimensional, color flow and Doppler imaging with no structural abnormalities, no thrombus formation present. Right Atrium The right atrium is normal by two-dimensional imaging, color flow and Doppler imaging with no structural abnormalities, no thrombus formation present. Atrial Septum The interatrial septum is bowed to the left. Aorta The aorta is normal by two-dimensional, color flow and Doppler interrogation. Mitral Valve The mitral valve is normal by two-dimensional, color flow and Doppler interrogation. Trace mitral regurgitation. Aortic Valve Sclerosis of the non-coronary cusp. Tricuspid Valve The tricuspid valve is normal by two-dimensional, color flow and Doppler interrogation. There is trace tricuspid valve regurgitation. Pulmonic Valve The pulmonic valve is not well visualized. There is no significant pulmonic valve regurgitation. Vessels Inferior vena cava not well visualized. Pericardium The pericardium is normal by two-dimensional imaging. There is no significant pericardial effusion. CONCLUSIONS Indication: Stroke Negative bubble study. Normal LV size. Mild LVH. Estimated EF at 60-65 %. The RV is normal in size and systolic function. The interatrial septum is bowed to the left. Sclerosis of the non-coronary cusp. Trace mitral and trace tricuspid regurgitation Kristen Moncada (Electronically Signed) Final Date: 02 August 2025 10:41
--- NOTE | 2025-08-01 11:09 | PC.SS ---
rounding note: Echo pending. Possible d/c home today. No deficits.
--- NOTE | 2025-08-01 11:14 | CHAP ---
Patient was visited by the Spiritual Care Volunteer who prayed for them. (Volunteer was in the hospital from 10:36-11:14).
--- NOTE | 2025-08-01 11:52 | ESPR_ITS ---
<Statement entered by Elisabeth Nagy MD - 08/01/25 12:24> Patient seen and examined at bedside. No acute overnight events reported. Labs are unremarkable and blood pressure still elevated after undergoing hemodialysis session yesterday. Uptitrate agents for optimizing BP control. Today he is alert and oriented x 3 with confusion resolved. Per neurology recommendations, he was started on donepezil and Seroquel as management for dementia with psychotic features. Plan to discharge patient pending echo. The patient's management plan was discussed with my attending physician Dr. Roa. Elisabeth Nagy, PGY-2 Documentation for date of: 08/01/25 Subjective Subjective Interval history: Mr Flores is a 74 yo M with a hx of ESRD TTS (follows with Dr. Navarrete) ?consistency with hd sessions, htn, t2dm, hld who presents to the ed with c/c ble weakness following his hd session today. Pt is accompanied by his who states that he has had some confusion for the past few months, he did not attend hd session on saturday because he was feeling weak. he attended his morning hd session earlier today and when his session completed he realized that he could not move his lower extremeties, he endorsed some parasthesias. He states that he sat in the hd chair for an additional hour before he regained some feeling in his legs. these symptoms prompted him to present to the ED per , pt has had some ground level falls without headstrike 3 months ago, she notes that he is often holding on to objects around the house to get around and ambulates very slowly. 07/30/2025: patient seen and examined at bedside in tele. was not at bedside. pt continues to be confused but slightly more oriented to person, place, and time. Appears to have some baseline dementia. MRI brain with white matter changes, Negative for acute hemorrhage, mass effect or midline shift. EEG pending, echo pending. 07/31/2025: Patient seen and examined at bedside in telemetry. not at bedside patient sitting at edge of bed, chatting with the sitter. He continues to be confused but oriented x 2. EEG read is pending echo is pending he will have HD today per is usual TTS schedule. BP meds restarted given stroke was ruled out. Neuro recs donezapil 5 mg qhs and seroquel 25 qhs prn. will follow up post hd renal panel. 08/01/2025: Patient seen and examined at bedside in telemetry. Pt is enjoying breakfast, EEG is normal, ECHO is pending, HD per his usual TTS schedule Exam Vital Signs Temp Pulse Resp BP Pulse Ox O2 Del Method 97.2 F 76 20 177/95 H 99 Room Air 08/01/25 08:00 08/01/25 08:16 08/01/25 08:00 08/01/25 08:16 08/01/25 08:00 08/01/25 08:00 Narrative Exam GENERAL: no acute distress, AAO x2, sitting upright at the edge of the bed. HEENT: Head AT/ NC. Mucous membranes moist. PERRL. NECK: Supple, no lymphadenopathy, no carotid bruits. CARDIOVASCULAR: RRR. Normal S1/S2, No m/r/g. No pitting edema of bilateral LEs. RESPIRATORY: CTAB. No wheezing, rhonchi, crackles. GASTROINTESTINAL: Abdomen soft, non tender no palpable masses. Bowel sounds present MUSCULOSKELETAL:? No cyanosis or edema, no visible joint swelling. NEUROLOGICAL: CN II-XII grossly intact. normal sensation intact PSYCHIATRIC: Awake and alert, not agitated, normal mood and affect. SKIN: No obvious rashes, no jaundice, normal turgor. Objective Labs 08/01/25 05:10 08/01/25 05:10 Labs: Laboratory Results - last 24 hr 08/01/25 05:10 WBC 7.1 RBC 4.28 L Hgb 13.5 Hct 40.6 L MCV 95 MCH 31.5 MCHC 33.3 RDW Std Deviation 50.6 H Plt Count 204 D Neut % (Auto) 57 Lymph % (Auto) 25 [place] % (Auto) 14 H Eos % (Auto) 3 Baso % (Auto) 1 Neut # (Auto) 4.0 Lymph # (Auto) 1.8 [place] # (Auto) 1.0 H Eos # (Auto) 0.2 Baso # (Auto) 0.1 Immature Gran # (Auto) 0.01 H Absolute Nucleated RBC 0.00 Immature Gran % 0 Nucleated RBC % 0 Sodium 138 Potassium 4.0 D Chloride 98 Carbon Dioxide 25.4 Anion Gap 15 BUN 31 H Creatinine 6.7 H* D Estim Creat Clear Calc 7.5 L eGFR 8 L* BUN/Creatinine Ratio 5 L Glucose 111 H Calculated Osmolality 283 Calcium 9.1 Corrected Calcium 9.1 Phosphorus 5.8 H Magnesium 2.0 Total Bilirubin 0.6 AST 13 ALT < 7 L Alkaline Phosphatase 66 Total Protein 6.7 Albumin 4.2 Globulin 2.5 Albumin/Globulin Ratio 1.7 ABG Interpretation ABG results: 07/29/25 14:25 ABG pH 7.52 H ABG pCO2 27 L ABG pO2 113 H ABG HCO3 22 ABG O2 Saturation 99 H ABG Base Excess 1 Quality Measures Quality Measures stroke Suspected type of Stroke: Unknown at this time Last known well (date): 07/29/25 Last known well (time): 12:41 Tenecteplase given: Reason(s) Tenecteplase not given: Stroke severity too mild (non-disabling) (Per tele-neuro etiology metabolic) not given Rehab services: PT evaluation ordered and Speech Language Pathology eval ordered VTE Prophylaxis: pharmaceutical Antithrombotic by day 2:: ordered Statin ordered: <75 y/o high intensity dose Anticoagulation ordered for A-fib or flutter (current or hx): not indicated Advance care planning discussed with:: patient Assessment & Plan Assessment Current Active Medications: Generic Name Dose Route Start Last Admin Trade Name Freq PRN Reason Stop Dose Admin Acetaminophen 650 mg 07/29/25 16:01 Acetaminophen 325 Mg Tablet PO 08/28/25 16:00 Q6H PRN Fever >101.5 Acetaminophen 650 mg 07/29/25 16:01 07/31/25 22:35 Acetaminophen 325 Mg Tablet PO 08/28/25 16:00 650 mg Q6H PRN Administration PAIN SCALE 1-3 (mild Amlodipine Besylate 10 mg 08/02/25 09:00 Amlodipine Besylate 5 Mg Tablet PO 09/01/25 08:59 QDAY GERDA Aspirin 81 mg 07/29/25 14:45 08/01/25 08:01 Aspirin Ec 81 Mg Tabec PO 08/28/25 14:44 81 mg QDAY GERDA Administration Atorvastatin Calcium 40 mg 07/29/25 21:00 07/31/25 20:37 Atorvastatin Calcium 20 Mg Tablet PO 08/28/25 20:59 Not Given HS GERDA Dextrose 25 ml 07/29/25 21:17 Dextrose 50%-Water Inj 50 Ml Syringe IV 08/28/25 21:16 Q15MIN PRN BG 50-70 responsive npo pt Dextrose 50 ml 07/29/25 21:17 Dextrose 50%-Water Inj 50 Ml Syringe IV 08/28/25 21:16 Q15MIN PRN BG <50 OR BG <70 & pt unresponsive Docusate Sodium 100 mg 07/29/25 21:00 08/01/25 08:02 Docusate Sod Liqd 100 Mg/10 Ml Udc PO 08/28/25 20:59 100 mg BID GERDA Administration Protocol Donepezil HCl 5 mg 07/31/25 21:00 07/31/25 20:37 Donepezil Hcl 5 Mg Tablet PO 08/30/25 20:59 Not Given HS GERDA Glucagon 1 mg 07/29/25 21:17 Glucagon Inj 1 Mg Vial IM Q15MIN PRN BG <70, and no IV access Heparin Sodium (Porcine) 5,000 unit 07/29/25 21:00 08/01/25 08:04 Heparin Sod Inj 5000 Unit/Ml Vial SC 08/12/25 20:59 5,000 unit Q12HR GERDA Administration Heparin Sodium (Porcine) 3,500 unit 07/31/25 16:16 07/31/25 16:30 Heparin Sod Inj 1000 Unit/Ml Vial 10 Ml INDWELLCAT 08/14/25 16:15 3,500 unit X1 PRN Administration DIALYSIS Hydralazine HCl 10 mg 07/31/25 00:48 07/31/25 15:47 Hydralazine Inj 20 Mg/Ml Vial IVP 08/28/25 17:51 10 mg Q6H PRN Administration SBP > 180mmHg Insulin Human Lispro 0 unit 07/30/25 11:30 08/01/25 08:02 Insulin Lispro (Admelog) 1 Unit/0.01 Ml Unit SC 08/29/25 11:29 Not Given ACHS GERDA Protocol Lisinopril 40 mg 07/30/25 17:00 08/01/25 08:01 Lisinopril 20 Mg Tablet PO 08/29/25 16:59 40 mg QDAY GERDA Administration Ondansetron HCl 4 mg 07/29/25 13:44 07/29/25 14:45 Ondansetron Inj 2 Mg/Ml Inj 2 Ml IVP 08/28/25 13:43 4 mg Q4HR PRN Administration NAUSEA OR VOMITING Pantoprazole Sodium 40 mg 07/31/25 09:00 08/01/25 08:01 Pantoprazole 40 Mg Tablet PO 08/30/25 08:59 40 mg QDAY GERDA Administration Quetiapine Fumarate 25 mg 07/31/25 08:03 07/31/25 22:35 Quetiapine Fumarate 25 Mg Tablet PO 08/30/25 20:59 25 mg HS PRN Administration hallucinations Sevelamer Carbonate 800 mg 07/30/25 12:00 08/01/25 07:50 Sevelamer Carbonate 800 Mg Tablet PO 08/29/25 11:59 800 mg TIDWM GERDA Administration Plan Mr Flores is a 74 yo M with a hx of ESRD TTS (follows with Dr. Navarrete) ?consistency with hd sessions, htn, t2dm, hld who presents to the ed with c/c ble weakness following his hd session today, admitted for stroke rule out, allowing for permissive htn until stroke is ruled out. on physical exam he has word finding difficulties, difficulty following commands, decreased sensation of LLE, deminished strength on the L side in house neuro consulted, appreciate recs. suspect PRES , stroke ruled out, restarted home antihypertensive medications. continues on HD per his usual schedule TTS. started on donezapil and seroquel qhs prn. pending echo HTN- poorly controlled restart home bp meds BP has been elevated, even during dialysis sbp 170s - amlodipine increased from 5 to 10 mg qd - lisinopril 40 qd (pt med list states that he take 40 bid). dementia suspected with psychotic features reports c/f stepwise decline tsh and b12 wnl - neuro recs donezapil 5 mg qhs and serequel 25 qhs prn - consider moca outpatient ESRD on HD TTS GFR [address] Navarrete BUN 32, Cr 5.1, does not appear volume overloaded on exam, no LE edema, no crackles. ?compliance with getting HD, reports missing saturday session this week, Pt went to HD on . - Consult nephrojonh for inpatient HD during admission - avoid nephrotoxic agents - renally dose medications - restart sevelamer carbonate with meals UTI vs Pyuria pt denies LUTS, UA with 2+ Glucose, 1+ protein, Leukesterase + Ucx pending - CTX 1 gm qd (07/29- ?Acute ischemic Stroke - RULED OUT vs ?Acute encephalopathy- ruled out vs ?hypertensive emergency vs ?posterior reversible encephalopathy syndrome (PRES) Patient was not deemed a candidate for tPA because last known well was greater than 4.5 hours NIHSS score of 7 pt presented with c/f bilateral LE weakness preventing him from ambulating after HD, pt reported that he missed HD session on saturday BP elevated upon presentation to the ed, may be poorly controlled outpatient Dx * NCHCT Negative for acute hemorrhage, mass effect or midline shift * CTA head neck No significant neck arterial stenosis. No cerebral large vessel arterial occlusions or thrombus * Brain MRI wo contrast Negative for acute hemorrhage, mass effect or midline shift, white matter changes * Echo pending * EEG nl * In-house neurologist consulted: Dr. Perales, appreciate recs Tx * ASA 81 mg daily * Atorvastatin 40 mg at bedtime T2DM not on insulin - well controlled a1c 5.6 hold home glipizide 5 mg po bid hold pioglitazone 30 mg qd - ISS (pt sometimes refusing to get insulin) Gait instability hx falls , lives at home with his wive, indpendent of adls, uses cane sometimes. - pt evaluation: Patient is independent with transfers and ambulation without AD. HLD holding home lovastatin 40 mg qhs - atorvastatin 40 qhs Constipation - docusate 100 mg PRN Dispo: tele, stroked rule out, pending echo, HD per his usual schedule, . Diet: renal diet Bowel Reg: docusate 100 mg prn VTE ppx: heparin 5000sq GI ppx: protonix 40 qd Code status: FULL Plan discussed with Dr Perales, and Dr. Crispin Stevenson MD PGY1 Attending Provider Attestation/Addendum I have discussed and was present for the essential components of the history, physical examination, diagnosis, and treatment plan with the resident. I agree with the patient's care as documented by the resident and amended herein by me. Vik Roa DO. Although this document has been carefully reviewed, there may still be some phonetic and other typographical errors. These errors are purely grammatical due to imperfections in the software program and should not be construed in any way to compromise the substance of the patient's medical care during this visit. Patient seen and evaluated this AM. No acute events overnight, vital signs stable, patient afebrile, acidosis improved today, BUN 31, creatinine 6.7, patient did get hemodialysis yesterday. EEG performed was WNL, echo is still pending which hopefully will occur today, patient may be able to be discharged later on today or tomorrow pending echo and read.
[2025-08-01] MEDS: INSULIN LISPRO (AdmeLOG) 1 UNIT/0.01 ML UNIT SC ×3 (11:59→21:14)
[2025-08-01] MEDS: DONEPEZIL HCL 5 MG TABLET PO (21:14)
[2025-08-01] MEDS: ATORVASTATIN CALCIUM 20 MG TABLET 40 MG PO (21:14)
[2025-08-01 21:15] LABS: Hepatitis A Antibody IgM Equivocal (Non React); Hepatitis B Core Antibody IgM Non Reactive (Non React); Hepatitis B Surface Ab Reactive (Immune) (Immune); Hepatitis B Surface Antigen Non Reactive (Non React); Hepatitis C Antibody Non Reactive (Non React)
--- NOTE | 2025-08-01 22:28 | PD.VPROG1 ---
Telemedicine visit statement This visit was conducted with the use of phone was obtained on 08/01/25 at 2228. Documentation for date of: 08/01/25 Subjective Subjective Interval history: Patient is in telemetry today, no new symptoms reported. Virtual exam Vital Signs Temp Pulse Resp BP Pulse Ox O2 Del Method 97.3 F 85 19 134/78 H 98 Room Air 08/01/25 20:00 08/01/25 20:00 08/01/25 20:00 08/01/25 20:00 08/01/25 20:00 08/01/25 20:00 Objective Labs 08/01/25 05:10 08/01/25 05:10 Labs: Laboratory Results - last 24 hr 07/31/25 08/01/25 15:10 05:10 WBC 7.1 RBC 4.28 L Hgb 13.5 Hct 40.6 L MCV 95 MCH 31.5 MCHC 33.3 RDW Std Deviation 50.6 H Plt Count 204 D Neut % (Auto) 57 Lymph % (Auto) 25 Caroline % (Auto) 14 H Eos % (Auto) 3 Baso % (Auto) 1 Neut # (Auto) 4.0 Lymph # (Auto) 1.8 Caroline # (Auto) 1.0 H Eos # (Auto) 0.2 Baso # (Auto) 0.1 Immature Gran # (Auto) 0.01 H Absolute Nucleated RBC 0.00 Immature Gran % 0 Nucleated RBC % 0 Sodium 138 Potassium 4.0 D Chloride 98 Carbon Dioxide 25.4 Anion Gap 15 BUN 31 H Creatinine 6.7 H* D Estim Creat Clear Calc 7.5 L eGFR 8 L* BUN/Creatinine Ratio 5 L Glucose 111 H Calculated Osmolality 283 Calcium 9.1 Corrected Calcium 9.1 Phosphorus 5.8 H Magnesium 2.0 Total Bilirubin 0.6 AST 13 ALT < 7 L Alkaline Phosphatase 66 Total Protein 6.7 Albumin 4.2 Globulin 2.5 Albumin/Globulin Ratio 1.7 Hepatitis A IgM Ab Equivocal Hep Bs Antigen Non Reactive Hep Bs Antibody Reactive (Immune) Hep B Core IgM Ab Non Reactive Hepatitis C Antibody Non Reactive ABG Interpretation ABG results: 07/29/25 14:25 ABG pH 7.52 H ABG pCO2 27 L ABG pO2 113 H ABG HCO3 22 ABG O2 Saturation 99 H ABG Base Excess 1 Assessment & Plan Problem List (1) Dementia with psychotic disturbance: Status: Acute Assessment and plan: Patient has early dementia with psychosis even though the EEG is normal. Continue with Seroquel at bedtime Donepezil 5 mg at bedtime to slow down the progression.
[2025-08-02] VITALS (10 sets, daily range): BP systolic 125–190; BP diastolic 73–98; PULSE 84–96; RESP 14–96; TEMP 36.1–36.9; O2SAT 96–98
[2025-08-02 05:29] LABS: Basophils # (Auto) 0.1 Thou/mm3 (0.0-0.2); Basophils % (Auto) 1 % (0-2.5); Eosinophils # (Auto) 0.2 Thou/mm3 (0.0-0.5); Eosinophils % (Auto) 3 % (0-10); Hematocrit 39.4 % (41.0-53.0); Hemoglobin 12.8 g/dL (13.5-16.0); Immature Granulocytes Auto 0.02 Thou/mm3 (0.00-0.00); Lymphocytes # (Auto) 1.5 Thou/mm3 (1.0-4.8); Lymphocytes % (Auto) 19 % (10-50); Mean Corpuscular HGB Conc 32.5 g/dl (31.0-37.0); Mean Corpuscular Hemoglobin 31.0 pg (25.0-35.0); Mean Corpuscular Volume 95 fL (80-100); Monocytes # (Auto) 0.9 Thou/mm3 (0.0-0.8); Monocytes % (Auto) 11 % (0-12); Neutrophils # (Auto) 5.1 Thou/mm3 (1.8-7.7); Neutrophils % (Auto) 66 % (37-80); Nucleated Red Blood Cell # 0.00 Thou/mm3 (0.00-0.00); Nucleated Red Blood Cell % 0 /100 WBC (0); Platelet Count 236 Thou/mm3 (140-440); RDW Standard Deviation 49.4 fL (35.1-43.9); Red Blood Count 4.13 Miln/mm3 (4.50-5.90); White Blood Count 7.7 Thou/mm3 (3.8-10.6)
[2025-08-02 06:32] LABS: Alanine Aminotransferase < 7 U/L (10-49); Albumin, Serum 4.1 gm/dL (3.4-4.8); Albumin/Globulin Ratio 1.7 (1.2-2.2); Alkaline Phosphatase 68 U/L (46-116); Anion Gap 16 (7-16); Aspartate Amino Transferase 14 U/L (0-34); BUN/Creatinine Ratio 6 Ratio (12-20); Bilirubin,Total 0.5 mg/dL (0.3-1.2); Blood Urea Nitrogen 47 mg/dL (9-23); Calcium 8.6 mg/dL (8.3-10.6); Calcium (Corrected) 8.6 mg/dL (8.5-10.1); Carbon Dioxide 21.7 mMol/L (20.0-31.0); Chloride 99 mMol/L (98-107); Creatinine (Component) 8.5 mg/dL (0.6-1.3); Estimated Creatinine Clearance 5.9 mL/min (>60); Globulin 2.4 gm/dL (2.3-3.5); Glucose 132 mg/dL (74-106); Magnesium 2.2 mg/dL (1.6-2.6); Osmolality,Calculated 288 (275-295); Phosphorous 6.9 mg/dL (2.4-5.1); Potassium 4.3 mMol/L (3.4-5.1); Sodium 137 mMol/L (136-145); Total Protein 6.5 gm/dL (5.7-8.2); eGFR 6 See Note
[2025-08-02] MEDS: SEVELAMER CARBONATE 800 MG TABLET PO ×2 (07:46→11:55)
[2025-08-02] MEDS: HEPARIN SOD INJ 5000 UNIT/ML VIAL SC (08:09)
[2025-08-02] MEDS: ASPIRIN EC 81 MG TABEC PO (08:10)
[2025-08-02] MEDS: PANTOPRAZOLE 40 MG TABLET PO (08:10)
[2025-08-02] MEDS: DOCUSATE SOD LIQD 100 MG/10 ML UDC PO (08:11)
--- NOTE | 2025-08-02 08:58 | PD.RESPRO ---
Documentation for date of: 08/02/25 Subjective Subjective Interval history: History of Present Illness: 74 yo M with a hx of ESRD TTS (follows with Dr. Navarrete) ?consistency with hd sessions, htn, t2dm, hld who presents to the hospital on 07/29/2025 due to ?weakness following his hd session. Pt is accompanied by his who states that he has had some confusion for the past few months, he did not attend previous hd session on saturday because he was feeling weak. he attended his morning hd session earlier today and when his session completed he realized that he could not move his lower extremeties, he endorsed some parasthesias. He states that he sat in the hd chair for an additional hour before he regained some feeling in his legs. these symptoms prompted him to present to the ED. per , pt has had some ground level falls without headstrike 3 months ago, she notes that he is often holding on to objects around the house to get around and ambulates very slowly. Patient was admitted for further management including stroke workup. Nephrology was consulted for management of ESRD and need for hemodialysis through hospital stay. ED course: Patient initially came in with complaints of bilateral lower extremity weakness after hemodialysis yesterday. Patient's vitals showed hypertension, tachycardia, and afebrile. Initial labs were relevant for acute BUN of 32, creatinine 5.1, GFR of 11, BNP 407, and urine was positive for bacteria, protein, WBC, and RBC. PMH: previously on PD for 2 years, newly on HD for past 2 months, HTN, t2DM, HLD Surg: PD port removal Meds: to bring meds to the hospital 07/31/2025: patient currently seen in dialysis. Still remains confused. Denies any chest pain, shortness of breath. 08/01/2025: Labs reviewed and patient examined at the bedside. Patient slightly confused. AAOx2. Planned for hemodialysis next Saturday. BUN: 31, Cr:6.7, eGFR:8 08/02/2025:Labs reviewed and patient examined at the bedside. AAO x2. No other complaintes. Hemodialysis on saturday. BUN: 47, Cr:8.5, eGFR:6 Exam Vital Signs Temp Pulse Resp BP Pulse Ox O2 Del Method 97.3 F 91 20 179/92 H 98 Room Air 08/02/25 04:00 08/02/25 08:11 08/02/25 04:00 08/02/25 08:11 08/02/25 04:00 08/02/25 04:00 Narrative Exam General: No acute distress, well nourished, AAO x2 Eye: PERRL, EOMI, normal conjunctiva, no scleral icterus HENT: Normocephalic, atraumatic, hearing intact to conversation at normal volume, moist oral mucosa Neck: Supple, non-tender, no JVD, no lymphadenopathy Lungs: Non-labored respirations, symmetric chest rise, Clear to auscultate bilaterally, No wheezing, rhonchi, crackles Heart: Peripheral pulses intact bilaterally, Regular Rate and Rhythm. Abdomen: Soft, non-tender, non-distended, no palpable masses Musculoskeletal: Normal range of motion and strength, No cyanosis or edema, No visible joint swelling Skin: Skin is warm, dry, no rashes or lesions. Psychiatric: Cooperative, appropriate mood and affect, Awake and alert, not agitated Neuro: Cranial nerves II-XII grossly intact. Sensations intact to light touch. Objective Labs 08/02/25 05:06 08/02/25 05:06 Labs: Laboratory Results - last 24 hr 07/31/25 08/02/25 15:10 05:06 WBC 7.7 RBC 4.13 L Hgb 12.8 L Hct 39.4 L MCV 95 MCH 31.0 MCHC 32.5 RDW Std Deviation 49.4 H Plt Count 236 D Neut % (Auto) 66 Lymph % (Auto) 19 [place] % (Auto) 11 Eos % (Auto) 3 Baso % (Auto) 1 Neut # (Auto) 5.1 Lymph # (Auto) 1.5 [place] # (Auto) 0.9 H Eos # (Auto) 0.2 Baso # (Auto) 0.1 Immature Gran # (Auto) 0.02 H Absolute Nucleated RBC 0.00 Immature Gran % 0 Nucleated RBC % 0 Sodium 137 Potassium 4.3 Chloride 99 Carbon Dioxide 21.7 Anion Gap 16 BUN 47 H Creatinine 8.5 H* D Estim Creat Clear Calc 5.9 L eGFR 6 L* BUN/Creatinine Ratio 6 L Glucose 132 H Calculated Osmolality 288 Calcium 8.6 Corrected Calcium 8.6 Phosphorus 6.9 H Magnesium 2.2 Total Bilirubin 0.5 AST 14 ALT < 7 L Alkaline Phosphatase 68 Total Protein 6.5 Albumin 4.1 Globulin 2.4 Albumin/Globulin Ratio 1.7 Hepatitis A IgM Ab Equivocal Hep Bs Antigen Non Reactive Hep Bs Antibody Reactive (Immune) Hep B Core IgM Ab Non Reactive Hepatitis C Antibody Non Reactive ABG Interpretation ABG results: 07/29/25 14:25 ABG pH 7.52 H ABG pCO2 27 L ABG pO2 113 H ABG HCO3 22 ABG O2 Saturation 99 H ABG Base Excess 1 Quality Measures Quality Measures stroke Suspected type of Stroke: Unknown at this time Last known well (date): 07/29/25 Last known well (time): 12:41 Tenecteplase given: Reason(s) Tenecteplase not given: Stroke severity too mild (non-disabling) (Per tele-neuro etiology metabolic) not given Rehab services: PT evaluation ordered VTE Prophylaxis: pharmaceutical Antithrombotic by day 2:: ordered Statin ordered: <75 y/o high intensity dose Anticoagulation ordered for A-fib or flutter (current or hx): ordered Advance care planning discussed with:: patient Assessment & Plan Assessment Current Active Medications: Generic Name Dose Route Start Last Admin Trade Name Freq PRN Reason Stop Dose Admin Acetaminophen 650 mg 07/29/25 16:01 Acetaminophen 325 Mg Tablet PO 08/28/25 16:00 Q6H PRN Fever >101.5 Acetaminophen 650 mg 07/29/25 16:01 07/31/25 22:35 Acetaminophen 325 Mg Tablet PO 08/28/25 16:00 650 mg Q6H PRN Administration PAIN SCALE 1-3 (mild Amlodipine Besylate 10 mg 08/02/25 09:00 08/02/25 08:11 Amlodipine Besylate 5 Mg Tablet PO 09/01/25 08:59 10 mg QDAY GERDA Administration Aspirin 81 mg 07/29/25 14:45 08/02/25 08:10 Aspirin Ec 81 Mg Tabec PO 08/28/25 14:44 81 mg QDAY GERDA Administration Atorvastatin Calcium 40 mg 07/29/25 21:00 08/01/25 21:14 Atorvastatin Calcium 20 Mg Tablet PO 08/28/25 20:59 40 mg HS GERDA Administration Dextrose 25 ml 07/29/25 21:17 Dextrose 50%-Water Inj 50 Ml Syringe IV 08/28/25 21:16 Q15MIN PRN BG 50-70 responsive npo pt Dextrose 50 ml 07/29/25 21:17 Dextrose 50%-Water Inj 50 Ml Syringe IV 08/28/25 21:16 Q15MIN PRN BG <50 OR BG <70 & pt unresponsive Docusate Sodium 100 mg 07/29/25 21:00 08/02/25 08:11 Docusate Sod Liqd 100 Mg/10 Ml Udc PO 08/28/25 20:59 100 mg BID GERDA Administration Protocol Donepezil HCl 5 mg 07/31/25 21:00 08/01/25 21:14 Donepezil Hcl 5 Mg Tablet PO 08/30/25 20:59 5 mg HS GERDA Administration Glucagon 1 mg 07/29/25 21:17 Glucagon Inj 1 Mg Vial IM Q15MIN PRN BG <70, and no IV access Heparin Sodium (Porcine) 5,000 unit 07/29/25 21:00 08/02/25 08:09 Heparin Sod Inj 5000 Unit/Ml Vial SC 08/12/25 20:59 5,000 unit Q12HR GERDA Administration Heparin Sodium (Porcine) 3,500 unit 07/31/25 16:16 07/31/25 16:30 Heparin Sod Inj 1000 Unit/Ml Vial 10 Ml INDWELLCAT 08/14/25 16:15 3,500 unit X1 PRN Administration DIALYSIS Hydralazine HCl 10 mg 07/31/25 00:48 07/31/25 15:47 Hydralazine Inj 20 Mg/Ml Vial IVP 08/28/25 17:51 10 mg Q6H PRN Administration SBP > 180mmHg Insulin Human Lispro 0 unit 07/30/25 11:30 08/02/25 07:39 Insulin Lispro (Admelog) 1 Unit/0.01 Ml Unit SC 08/29/25 11:29 Not Given ACHS [facility] Protocol Lisinopril 40 mg 08/02/25 09:00 Lisinopril 20 Mg Tablet PO 09/01/25 08:59 BID [facility] Protocol Ondansetron HCl 4 mg 07/29/25 13:44 07/29/25 14:45 Ondansetron Inj 2 Mg/Ml Inj 2 Ml IVP 08/28/25 13:43 4 mg Q4HR PRN Administration NAUSEA OR VOMITING Pantoprazole Sodium 40 mg 07/31/25 09:00 08/02/25 08:10 Pantoprazole 40 Mg Tablet PO 08/30/25 08:59 40 mg QDAY GERDA Administration Quetiapine Fumarate 25 mg 07/31/25 08:03 07/31/25 22:35 Quetiapine Fumarate 25 Mg Tablet PO 08/30/25 20:59 25 mg HS PRN Administration hallucinations Sevelamer Carbonate 800 mg 07/30/25 12:00 08/02/25 07:46 Sevelamer Carbonate 800 Mg Tablet PO 08/29/25 11:59 800 mg TIDWM GERDA Administration Plan 74 yo M with a hx of ESRD TTS (follows with Dr. Navarrete) ?consistency with hd sessions, htn, t2dm, hld who presents to the hospital on 07/29/2025 due to ?weakness following his hd session. ?Patient was admitted for further management including stroke workup. Nephrology was consulted for management of ESRD and need for hemodialysis through hospital stay. #ESRD on HD #Hyperkalemia -Patient is fairly new to hemodialysis was just started around 2 or 3 months ago-under Dr. Navarrete -Patient has a right sided tunneled dialysis catheter -Patient receives hemodialysis on Tuesdays, , and Saturdays -Patient's initial creatinine was 5.1 with a BUN of 3.2 and GFR of 11 on admission -Currently, BUN: 47, Cr:8.5, eGFR:6 -Hemodialysis sessions: 07/31 Plan: -Monitor renal function -Maintain fluid restriction, avoid nephrotoxic agents when possible, renally dose medications -Strict i and o -Hemodialysis scheduled next saturday #Acute encephalopathy, multifactorial #Possible press syndrome, stroke, seizures, dementia, hypertensive urgency #Hypertensive urgency #Type 2 diabetes -Management per Primary Hospitalist team Thank you for allowing us to participate in the care of your patient. Assessment and plan discussed with my attending physician Dr. Ana Almonte (PGY-1)- Internal medicine resident Attending Provider Attestation/Addendum Patient seen and examined with resident physician Dr. Almonte. Note reviewed, agree with findings and recommendations. Patient currently seen in telemetry. Next dialysis scheduled for tomorrow.
--- NOTE | 2025-08-02 11:37 | ESDS_ITS ---
<Statement entered by Elisabeth Nagy MD - 08/02/25 14:54> Note reviewed, I agree with most of its contents and agree with the patient's care as documented by Dr. Stevenson. The patient's management plan was discussed with my attending physician Dr. Roa. Elisabeth Nagy, PGY-2 Planned Discharge Date 08/02/25 DS: Providers Provider Date of admission: 07/29/25 16:01 Primary care physician: Physician No Primary/Family Admitting Provider: Sandeep Roa DO Attending Provider on Admission: Sandeep Roa DO Consults: 07/29/25 13:45 Consult to Neurology / Tele-Neurology Routine Comment: Consulting Provider: [facility] 07/29/25 16:01 Consult to Nephrology Stat Comment: ESRD TTS, Consulting Provider: Curt Perez 07/29/25 16:08 Referral Physical Therapy Routine Comment: Physician Instructions: Instructions: stroke r/o LE weakness and diminished sensation on LLE Referral Speech Therapy Routine Comment: 07/30/25 02:06 Consult to Neurology / Tele-Neurology Routine Comment: Consulting Provider: Sky Perales Attending Provider on DC: Sandeep Roa DO Discharging Provider: Sandeep Roa DO DS: Diagnosis Problem List Completed Was Problem List Reviewed/Reconciled?: Yes Hospital Course Hospital Course Hospital course: Admitting Diagnoses: Stroke-like symptoms, ruled out stroke ? 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 Navarrete Dementia with psychotic features (suspected) Asymptomatic pyuria (treated empirically) Type 2 diabetes mellitus, well-controlled Hyperlipidemia History of Present Illness This is a 74-year-old man with a history of ESRD (on HD //Sat), hypertension, type 2 diabetes, and hyperlipidemia who presented to the ED with lower extremity weakness following a dialysis session. His reported several months of progressive confusion. After dialysis, the patient could not move his legs and described paresthesias bilaterally, requiring an additional hour in the dialysis chair before symptoms improved. He was admitted for a stroke rule-out. Hospital Course Neurologic evaluation: Teleneurology and in-house neurology were consulted. Stroke was ruled out with CT head, CTA head/neck, and MRI brain. PRES was suspected in the setting of poorly controlled hypertension. ECHO showed Normal LV size. Mild LVH. Estimated EF at 60-65 %. Given several months of stepwise cognitive decline, dementia with psychotic features was also considered. TSH and B12 were normal. Neurology recommended starting donepezil 5 mg daily and quetiapine 25 mg nightly PRN. Outpatient follow-up and possible MOCA testing were advised. Hypertension: On admission, systolic BPs remained in the 170s. allowing permissive hypertension in setting of pending stroke rule out. once cva was ruled out he was restarted on his home antihypertensives (lisinopril 40 mg daily and amlodipine 5 mg daily). Amlodipine was later increased to 10 mg daily. Per pharmacy, lisinopril dosing above 40 mg/day is not recommended, Restarted on BID dosing. ESRD: The patient received inpatient hemodialysis. His course was uncomplicated. UA showed 2+ glucose, 1+ protein, and positive leukocyte esterase. However, urine cultures were negative and he was asymptomatic. He was empirically started on ceftriaxone 1 g daily during admission, d/c abx on discharge Diabetes: Well-controlled during hospitalization on sliding-scale insulin. HbA1c was 5.6%. No hypoglycemic episodes. Stroke prevention: Given presentation with stroke-like symptoms, he was started on aspirin 81 mg daily and atorvastatin 40 mg nightly. Functional status: Physical therapy evaluated the patient in the setting of ?s report of falls. PT found him independent with transfers and ambulation without assistive devices. The patient?s neurological symptoms improved, and he remained clinically stable. Discharge Condition Stable, alert, ambulatory without assistance, no new neurologic deficits. Discharge Medications Amlodipine 10 mg PO daily Donepezil 5 mg PO daily Aspirin 81 mg PO daily Atorvastatin 40 mg PO nightly quetiapine 25 mg qhs prn for hallucinations Resume other home medications Follow-Up Nephrology (Dr. Navarrete): continue outpatient hemodialysis (//Sat) Neurology: outpatient follow-up for PRES, dementia evaluation, Primary care in 1-2 weeks with PCP for blood pressure and diabetes management, and MOCA testing Patient Education Counseled on strict adherence to hemodialysis schedule, importance of blood pressure control, medication adherence, stroke symptom recognition, and when to seek urgent care. educated on dementia progression and need for outpatient cognitive follow-up. Plan discussed with Dr. Nagy, Dr Perales, and Dr. Crispin Stevenson MD PGY1 Time Spent with Patient Time attestation: Total time spent providing and/or coordinating discharge services: Time spent: Greater than 30 minutes Exam Vital Signs Temp Pulse Resp BP Pulse Ox O2 Del Method 96.9 F 91 24 H 179/92 H 96 Room Air 08/02/25 08:00 08/02/25 08:11 08/02/25 08:00 08/02/25 08:11 08/02/25 08:00 08/02/25 08:00 Narrative Exam GENERAL: no acute distress, AAO x2, sitting upright at the edge of the bed. pleasantly demented. HEENT: Head AT/ NC. Mucous membranes moist. PERRL. NECK: Supple, no lymphadenopathy, no carotid bruits. CARDIOVASCULAR: RRR. Normal S1/S2, No m/r/g. No pitting edema of bilateral LEs. RESPIRATORY: CTAB. No wheezing, rhonchi, crackles. GASTROINTESTINAL: Abdomen soft, non tender no palpable masses. Bowel sounds present MUSCULOSKELETAL:? No cyanosis or edema, no visible joint swelling. NEUROLOGICAL: CN II-XII grossly intact. normal sensation intact PSYCHIATRIC: Awake and alert, not agitated, normal mood and affect. SKIN: No obvious rashes, no jaundice, normal turgor. Discharge Plan Plan Patient Disposition: HOME (Self Care) Patient condition on transfer: Stable Prescriptions/Referrals Prescriptions/Med Rec: New aspirin 81 mg Tablet,Delayed Release (Dr/Ec) 81 mg PO QDAY 30 Days Qty: 30 0RF quetiapine 25 mg Tablet 25 mg PO HS PRN (Reason: hallucinations) 30 Days Qty: 30 0RF donepezil 5 mg Tablet 5 mg PO HS 30 Days Qty: 30 0RF atorvastatin 40 mg tablet 40 mg PO QPM Qty: 30 0RF Continued amlodipine 5 mg tablet 5 mg PO QDAY Patient Comments: TAKE ONE TABLET BY MOUTH EVERY DAY HIGH BLOOD PRESSURE lisinopril 40 mg tablet 40 mg PO BID Patient Comments: TAKE ONE TABLET BY MOUTH TWICE DAILY FOR BLOOD PRESSURE sevelamer carbonate 800 mg tablet 1,600 mg PO .WITH MEALS Patient Comments: TAKE TWO TABLETS BY MOUTH THREE TIMES DAILY WITH FOOD Discontinued pioglitazone [Actos] 30 MG tablet 30 mg PO QDAY Qty: 0 Patient Comments: FOR DIABETES lovastatin 40 mg Tablet 40 mg PO QPM Referrals: [facility] [Outside] Mine Stevenson MD [Resident, Internal Medicine] No Primary/Family,Physician [Primary Care Provider] Sky Perales MD [Physician, Neurology] Patient/Caregiver Discharge Instructions Other Discharge Activity Instructions:: Stop taking pioglitazone for treatment of diabetes as your A1c was normal at 5.6. Stop taking Lovastatin 40mg and instead take Atorvastatin 40mg at night. Continue taking quetiapine and donepazil nightly to help manage with dementia. Continue taking aspirin and atorvastatin at time of discharge for management of stroke. Resume other previous medications. Follow up with neurologist in 1-2 weeks. Follow up with Primary Doctor in 1-2 weeks. If you do not have a Primary Doctor, please make an appointment with the [facility] at [phone] on Wednesdays 1-4PM or Fridays 1-4PM . Education Materials: Understanding Dementia, Discharge Instructions for Stroke, Delirium & Dementia Difference, ED TIA: Transient Ischemic Attack Print Language: Haitian Stand Alone Forms: [employer] Award Info., Patient Portal Info Letter Discharge Order Discharge Orders: Discharge (Routine); Ordered 08/02/25 Ordered By: Elisabeth Nagy Quality Discharge Quality Measures VTE prophylaxis Attestestation MD Attestation I have discussed and was present for the essential components of the discharge history, physical examination, diagnosis, and discharge treatment plan with the resident. I agree with the patient's discharge care as documented by the resident and amended herein by me. Vik Roa DO. The patient understood all discharge instructions, all questions were answered satisfactorily. The patient was instructed to return to the Emergency Department is symptoms worsened or persisted. Patient was stable, afebrile, tolerating p.o. intake at time of discharge home. Home health has been ordered. Although this document has been carefully reviewed, there may still be some phonetic and other typographical errors. These errors are purely grammatical due to imperfections in the software program and should not be construed in any way to compromise the substance of the patient's medical care during this visit.
[2025-08-02] MEDS: INSULIN LISPRO (AdmeLOG) 1 UNIT/0.01 ML UNIT SC (11:55)
[2025-08-02] MEDS: hydrALAZINE INJ 20 MG/ML VIAL 10 MG IVP (12:22)
--- NOTE | 2025-08-02 12:45 | PC.NURSE ---
Pt's blood pressure has been trending high today. 179/[address] Nagy and [address]. Perales on the floor. Made them aware. Gave patient his morning blood pressure medicine. Went down to 154/85. Discharge orders in at 11:28. 12:00 vitals, blood pressure was 181/97, 190/98. Gave hydralazine, rechecked blood pressure, went down to 153/74. Called Dr. Roa. Dr. Roa okay with blood pressure and okay with patient discharge.
--- NOTE | 2025-08-02 13:00 | PC.NURSE ---
Pt has discharge order. trying to reach pt's to go over discharge instructions and pt's ride home. Unable to reach . Charge nurse aware. will continue to try.
--- NOTE | 2025-08-02 13:41 | PC.SS ---
NIBBLER OPERATOR attempted phone contact with patient's spouse, Eden Mark . No response unable to leave voicemail.
--- NOTE | 2025-08-02 15:20 | PC.NURSE ---
Pt's came to pt room. Updated her phone number with us. Informed that patient is discharging. went over discharge instructions with .
--- NOTE | 2025-08-02 15:38 | PC.SS ---
CONTINUITY MANAGER informed by spouse request for patient to obtain home health services (nursing). No preferred home health agency identified. Bedside nurse to inform resident team of need for home health order. Patient's PCP is Oralia Swain.
--- NOTE | 2025-08-02 15:50 | PC.NURSE ---
Dr. Perales on Team A called and said they changed a few things for discharge instructions. Reprinted and went over with patient and patient's again.
--- NOTE | 2025-08-02 16:03 | PD.RESPRO ---
Documentation for date of: 08/02/25 Exam Vital Signs Temp Pulse Resp BP Pulse Ox O2 Del Method 97.3 F 88 18 125/73 97 Room Air 08/02/25 15:14 08/02/25 15:14 08/02/25 15:14 08/02/25 15:14 08/02/25 15:14 08/02/25 15:14 Objective Labs 08/02/25 05:06 08/02/25 05:06 Labs: Laboratory Results - last 24 hr 07/31/25 08/02/25 15:10 05:06 WBC 7.7 RBC 4.13 L Hgb 12.8 L Hct 39.4 L MCV 95 MCH 31.0 MCHC 32.5 RDW Std Deviation 49.4 H Plt Count 236 D Neut % (Auto) 66 Lymph % (Auto) 19 [place] % (Auto) 11 Eos % (Auto) 3 Baso % (Auto) 1 Neut # (Auto) 5.1 Lymph # (Auto) 1.5 [place] # (Auto) 0.9 H Eos # (Auto) 0.2 Baso # (Auto) 0.1 Immature Gran # (Auto) 0.02 H Absolute Nucleated RBC 0.00 Immature Gran % 0 Nucleated RBC % 0 Sodium 137 Potassium 4.3 Chloride 99 Carbon Dioxide 21.7 Anion Gap 16 BUN 47 H Creatinine 8.5 H* D Estim Creat Clear Calc 5.9 L eGFR 6 L* BUN/Creatinine Ratio 6 L Glucose 132 H Calculated Osmolality 288 Calcium 8.6 Corrected Calcium 8.6 Phosphorus 6.9 H Magnesium 2.2 Total Bilirubin 0.5 AST 14 ALT < 7 L Alkaline Phosphatase 68 Total Protein 6.5 Albumin 4.1 Globulin 2.4 Albumin/Globulin Ratio 1.7 Hepatitis A IgM Ab Equivocal Hep Bs Antigen Non Reactive Hep Bs Antibody Reactive (Immune) Hep B Core IgM Ab Non Reactive Hepatitis C Antibody Non Reactive ABG Interpretation ABG results: 07/29/25 14:25 ABG pH 7.52 H ABG pCO2 27 L ABG pO2 113 H ABG HCO3 22 ABG O2 Saturation 99 H ABG Base Excess 1 Quality Measures Quality Measures VTE prophylaxis Assessment & Plan Assessment Current Active Medications: Generic Name Dose Route Start Last Admin Trade Name Freq PRN Reason Stop Dose Admin Acetaminophen 650 mg 07/29/25 16:01 Acetaminophen 325 Mg Tablet PO 08/28/25 16:00 Q6H PRN Fever >101.5 Acetaminophen 650 mg 07/29/25 16:01 07/31/25 22:35 Acetaminophen 325 Mg Tablet PO 08/28/25 16:00 650 mg Q6H PRN Administration PAIN SCALE 1-3 (mild Amlodipine Besylate 10 mg 08/02/25 09:00 08/02/25 08:11 Amlodipine Besylate 5 Mg Tablet PO 09/01/25 08:59 10 mg QDAY GERDA Administration Aspirin 81 mg 07/29/25 14:45 08/02/25 08:10 Aspirin Ec 81 Mg Tabec PO 08/28/25 14:44 81 mg QDAY GERDA Administration Atorvastatin Calcium 40 mg 07/29/25 21:00 08/01/25 21:14 Atorvastatin Calcium 20 Mg Tablet PO 08/28/25 20:59 40 mg HS GERDA Administration Dextrose 25 ml 07/29/25 21:17 Dextrose 50%-Water Inj 50 Ml Syringe IV 08/28/25 21:16 Q15MIN PRN BG 50-70 responsive npo pt Dextrose 50 ml 07/29/25 21:17 Dextrose 50%-Water Inj 50 Ml Syringe IV 08/28/25 21:16 Q15MIN PRN BG <50 OR BG <70 & pt unresponsive Docusate Sodium 100 mg 07/29/25 21:00 08/02/25 08:11 Docusate Sod Liqd 100 Mg/10 Ml Udc PO 08/28/25 20:59 100 mg BID GERDA Administration Protocol Donepezil HCl 5 mg 07/31/25 21:00 08/01/25 21:14 Donepezil Hcl 5 Mg Tablet PO 08/30/25 20:59 5 mg HS GERDA Administration Glucagon 1 mg 07/29/25 21:17 Glucagon Inj 1 Mg Vial IM Q15MIN PRN BG <70, and no IV access Heparin Sodium (Porcine) 5,000 unit 07/29/25 21:00 08/02/25 08:09 Heparin Sod Inj 5000 Unit/Ml Vial SC 08/12/25 20:59 5,000 unit Q12HR GERDA Administration Heparin Sodium (Porcine) 3,500 unit 07/31/25 16:16 07/31/25 16:30 Heparin Sod Inj 1000 Unit/Ml Vial 10 Ml INDWELLCAT 08/14/25 16:15 3,500 unit X1 PRN Administration DIALYSIS Hydralazine HCl 10 mg 07/31/25 00:48 08/02/25 12:22 Hydralazine Inj 20 Mg/Ml Vial IVP 08/28/25 17:51 10 mg Q6H PRN Administration SBP > 180mmHg Insulin Human Lispro 0 unit 07/30/25 11:30 08/02/25 11:55 Insulin Lispro (Admelog) 1 Unit/0.01 Ml Unit SC 08/29/25 11:29 2 unit ACHS GERDA Administration Protocol Lisinopril 40 mg 08/02/25 14:00 08/02/25 14:05 Lisinopril 20 Mg Tablet PO 09/01/25 13:59 40 mg BID GERDA Administration Protocol Ondansetron HCl 4 mg 07/29/25 13:44 07/29/25 14:45 Ondansetron Inj 2 Mg/Ml Inj 2 Ml IVP 08/28/25 13:43 4 mg Q4HR PRN Administration NAUSEA OR VOMITING Pantoprazole Sodium 40 mg 07/31/25 09:00 08/02/25 08:10 Pantoprazole 40 Mg Tablet PO 08/30/25 08:59 40 mg QDAY GERDA Administration Quetiapine Fumarate 25 mg 07/31/25 08:03 07/31/25 22:35 Quetiapine Fumarate 25 Mg Tablet PO 08/30/25 20:59 25 mg HS PRN Administration hallucinations Sevelamer Carbonate 800 mg 07/30/25 12:00 08/02/25 11:55 Sevelamer Carbonate 800 Mg Tablet PO 08/29/25 11:59 800 mg TIDWM GERDA Administration
--- NOTE | 2025-08-02 16:04 | PC.CC ---
Addendum entered by Aundrea Vergara RN 08/02/25 16:35: Patient has been booked with [facility], SOC is 08/04/25 Original Note: HH referral sent to all agencies
--- NOTE | 2025-08-02 16:07 | PC.SS ---
Patient's spouse, Eden; number: [phone].
== END 2025-08-02 16:02 | disposition home or self-care (01) | DRG 70 ==
LOC: SERX 15:36 → SERHOLD 16:22 → S2NX 18:41
PROVIDERS: Internal Medicine; Admitting Provider Student in an Organized Health Care Education/Training Program; Emergency Provider Family Medicine; Visit Provider Internal Medicine
DX: I67.83 Posterior reversible encephalopathy syndrome (principal); N18.6 End stage renal disease; I12.0 Hypertensive chronic kidney disease with stage 5 chronic kidney disease or end stage renal disease; I16.1 Hypertensive emergency; F03.92 Unspecified dementia, unspecified severity, with psychotic disturbance; R53.1 Weakness; G93.41 Metabolic encephalopathy; E11.22 Type 2 diabetes mellitus with diabetic chronic kidney disease; E87.5 Hyperkalemia; E78.5 Hyperlipidemia, unspecified; R82.81 Pyuria; H53.8 Other visual disturbances; R26.2 Difficulty in walking, not elsewhere classified; K59.00 Constipation, unspecified; Z86.16 Personal history of COVID-19; Z99.2 Dependence on renal dialysis; Z79.82 Long term (current) use of aspirin; Z79.84 Long term (current) use of oral hypoglycemic drugs; Z79.899 Other long term (current) drug therapy
CPT/HCPCS: 36415; 36600; 70450; 70496; 70498; 70544; 71045; 80053; 80061; 80074; 80307; 81001; 82607; 82803; 83036; 83735; 83880; 84100; 84443; 84484; 84703; 85025; 85610; 85730; 86706; 87040; 87081; 87086; 92610; 93005; 93306; 95816; 96374; 96375; 97161; 99285; A4649; J0360; J0696; J1643; J1644; J1815; J2405; J2470; J7050; J7120; Q9967; A9270